=== PATIENT | male | born 1960 | race Caucasian/White ===

== ENCOUNTER 2017-02-13 07:28 | Inpatient (IN) | payer OTHER ==
[~2017-02-13 07:28] MED LIST: Gentamicin 40 MG/ML 2 ML Vial ONE; Midazolam 1 MG/ML 2 ML SDV ONE; Povidone-Iodine 10% Soln 118.25 ML Bottle ONE; Propofol 200 MG/20 ML SDV ONE; fentaNYL 100 MCG/2 ML SDV ONE
[2017-02-13] MEDS ORDERED: Lactated Ringers 1,000 ML IV SCH ×2 (08:00→12:00)
[2017-02-13] MEDS ORDERED: Gabapentin 300 MG Cap PO ONE (08:00)
[2017-02-13] MEDS ORDERED: Scopolamine 1.5 MG Transdermal Patch TOP SCH (08:00)
[2017-02-13] MEDS ORDERED: ceFAZolin 2 GM in Sodium Chloride 0.9% 50 ML IV ONE (09:00)
[2017-02-13] MEDS ORDERED: Ropivacaine 49.25 ML, Ketorolac 30 MG, EPINEPHrine 0.5 MG, cloNIDine 80 MCG, Sodium Chl... INJECT ONE ×5 (09:30)
[2017-02-13] MEDS ORDERED: Ketamine 500 MG/5 ML MDV IV SCH (09:30)
[2017-02-13] MEDS: Tranexamic Acid 1,000 MG in Sodium Chloride 0.9% 50 ML IV SCH ×2 (09:40→12:02)
[2017-02-13] MEDS ORDERED: Lactated Ringers 1,000 ML ONE (09:54)
[2017-02-13] MEDS ORDERED: Propofol 200 MG/20 ML SDV ONE ×2 (10:02→11:18)
[2017-02-13] MEDS ORDERED: Naloxone 0.4 MG/ML SDV IVPUSH PRN (11:58)
[2017-02-13] MEDS ORDERED: Bisacodyl 5 MG Tab PO PRN (11:58)
[2017-02-13] MEDS ORDERED: Magnesium Hydroxide 400 MG/5 ML Susp 30 ML Cup PO PRN (11:58)
[2017-02-13] MEDS ORDERED: Ondansetron 4 MG/2 ML SDV IVPUSH PRN (11:58)
[2017-02-13] MEDS ORDERED: diphenhydrAMINE 50 MG/ML SDV IVPUSH PRN (11:58)
[2017-02-13] MEDS ORDERED: Zolpidem 5 MG Tab PO PRN (11:58)
[2017-02-13] MEDS ORDERED: Morphine 2 MG/ML Syringe IVPUSH PRN (11:58)
[2017-02-13] MEDS ORDERED: Aluminum Hydroxide/Magnesium Hydroxide/Simethicone Susp 30 ML Cup PO PRN (11:58)
[2017-02-13] MEDS ORDERED: Acetaminophen 1,000 MG in Premix Bag 1 BAG IV ONE (13:00)
[2017-02-13] MEDS: Ketorolac 30 MG/ML SDV IVPUSH PRN ×2 (13:07→21:48)
--- NOTE | 2017-02-13 13:12 | CR ---
Status post left DKA.. Negative for post surgical purposes.
[2017-02-13] MEDS: VERIFY SCOPOLAMINE PATCH TOP SCH (14:00)
[2017-02-13] MEDS: oxyCODONE 5 MG Tab PO PRN ×2 (14:01→22:54)
[2017-02-13] MEDS ORDERED: HYDROmorphone 1 MG/ML Syringe IVPUSH ONE (14:28)
[2017-02-13] MEDS ORDERED: HYDROmorphone 0.5 MG/0.5 ML Syringe IVPUSH PRN (14:29)
--- NOTE | 2017-02-13 14:38 | PCM.PN ---
- General Info Date of Service: 02/13/17 Functional Status: Denies: Pain Controlled - Review of Systems Musculoskeletal: Reports: Joint Pain - Patient Data Vitals - Most Recent: Last Vital Signs Temp 36 C 02/13/17 14:25 Pulse 63 02/13/17 14:25 Resp 16 02/13/17 14:25 BP 158/82 H 02/13/17 14:25 Pulse Ox 95 02/13/17 14:25 Weight - Most Recent: 138.663 kg I&O - Last 24 Hours: Intake & Output 02/12/17 02/13/17 02/13/17 22:59 06:59 14:59 Intake Total 1500 Output Total 1125 Balance 375 Lab Results Last 24 Hours: Laboratory Results - last 24 hr 02/13/17 Range/Units 07:45 Blood Type A POSITIVE Gel Antibody Screen Negative Med Orders - Current: Current Medications Al Hydroxide/Mg Hydroxide (Mag-Al Plus) 30 ml PO Q4H PRN PRN Reason: Constipation Aspirin (Ecotrin) 325 mg PO BID [facility] Bisacodyl (Dulcolax) 10 mg PO DAILY PRN PRN Reason: Constipation Diazepam (Valium) 5 mg IVPUSH Q6H PRN PRN Reason: Spasms Last Admin: 02/13/17 14:01 Dose: 5 mg Diphenhydramine HCl (Benadryl) 25 mg IVPUSH Q4H PRN PRN Reason: Itching Docusate Sodium (Colace) 100 mg PO BID PRN PRN Reason: Constipation Hydromorphone HCl (Dilaudid) 1 mg IVPUSH ONETIME ONE Stop: 02/13/17 14:29 Hydromorphone HCl (Dilaudid) 0.5 - 1 mg IVPUSH Q2H PRN PRN Reason: Pain (severe 7-10) Lactated Ringer's (Ringers, Lactated) 1,000 mls @ 100 mls/hr IV ASDIRECTED [facility] Ketorolac Tromethamine (Toradol) 30 mg IVPUSH Q8H PRN PRN Reason: Pain Stop: 02/18/17 11:58 Last Admin: 02/13/17 13:07 Dose: 30 mg Magnesium Hydroxide (Milk Of Magnesia) 30 ml PO BID PRN PRN Reason: Constipation Naloxone HCl (Narcan) 0.1 mg IVPUSH ASDIRECTED PRN PRN Reason: Oversedation Stop: 02/13/17 22:00 Verify Scopolamine (Patch) 0 each TOP DAILY [facility] [place] Ondansetron HCl (Zofran) 8 mg IVPUSH Q4H PRN PRN Reason: Nausea/Vomiting Oxycodone HCl (Oxycodone) 10 mg PO Q4H PRN PRN Reason: Pain Last Admin: 02/13/17 14:01 Dose: 10 mg Scopolamine (Transderm-Scop) 1.5 mg TOP Q72H [facility] [place] Stop: 02/16/17 06:00 Last Admin: 02/13/17 08:20 Dose: 1.5 mg Senna (Senna) 8.6 mg PO BID PRN PRN Reason: Constipation Sodium Chloride (Saline Flush) 10 ml FLUSH DAILY [facility] [place] Tramadol HCl (Ultram) 100 mg PO Q6H PRN PRN Reason: Pain Zolpidem Tartrate (Ambien) 5 mg PO BEDTIME PRN PRN Reason: Sleep Discontinued Medications Aspirin (Ecotrin) 325 mg PO BID [facility] [place] Ropivacaine 49.25 ml/Ketorolac Tromethamine 30 mg/Epinephrine HCl 0.5 mg/ Clonidine HCl 80 mcg/ Sodium Chloride 48.45 ml 0 ml INJECT ONETIME ONE Stop: 02/13/17 09:31 Last Admin: 02/13/17 10:03 Dose: 100 ml Diazepam (Valium) 5 mg IVPUSH Q6H PRN PRN Reason: Spasms Fentanyl (Sublimaze) Confirm Administered Dose 100 mcg .ROUTE .STK-MED ONE Stop: 02/13/17 07:15 Gabapentin (Neurontin) 300 mg PO ONETIME ONE Stop: 02/13/17 08:01 Last Admin: 02/13/17 08:19 Dose: 300 mg Gentamicin Sulfate (Gentamicin) Confirm Administered Dose 240 mg .ROUTE .STK- MED ONE Stop: 02/13/17 07:09 Last Admin: 02/13/17 10:12 Dose: 240 mg Cefazolin Sodium 2 gm/ Sodium (Chloride) 50 mls @ 100 mls/hr IV ONETIME ONE Stop: 02/13/17 09:29 Last Admin: 02/13/17 09:09 Dose: 100 mls/hr Lactated Ringer's (Ringers, Lactated) 1,000 mls @ 0 mls/hr IV ASDIRECTED [facility] PRN Reason: KVO Tranexamic Acid 1,000 mg/ (Sodium Chloride) 60 mls @ 240 mls/hr IV Q3H [facility] [place] Stop: 02/13/17 12:44 Last Admin: 02/13/17 12:02 Dose: 240 mls/hr Lactated Ringer's (Ringers, Lactated) Confirm Administered Dose 1,000 mls @ as directed .ROUTE .STK-MED ONE Stop: 02/13/17 09:55 Acetaminophen 1,000 mg/ Premix 100 mls @ 400 mls/hr IV NOW ONE Stop: 02/13/17 13:14 Last Admin: 02/13/17 13:15 Dose: 400 mls/hr Ketamine HCl (Ketalar) 38 mg IV ASDIRECTED [facility] [place] Midazolam HCl (Versed 1 Mg/Ml) Confirm Administered Dose 2 mg .ROUTE .STK-MED ONE Stop: 02/13/17 07:15 Morphine Sulfate (Morphine) 2 mg IVPUSH Q2H PRN PRN Reason: Pain Last Admin: 02/13/17 13:06 Dose: 2 mg Povidone Iodine (Betadine 10% Soln) Confirm Administered Dose 1 ml .ROUTE .STK- MED ONE Stop: 02/13/17 07:09 Last Admin: 02/13/17 10:13 Dose: 30 ml Propofol (Diprivan 20 Ml) Confirm Administered Dose 200 mg .ROUTE .STK-MED ONE Stop: 02/13/17 07:15 Propofol (Diprivan 20 Ml) Confirm Administered Dose 200 mg .ROUTE .STK-MED ONE Stop: 02/13/17 10:03 Propofol (Diprivan 20 Ml) Confirm Administered Dose 200 mg .ROUTE .STK-MED ONE Stop: 02/13/17 11:19 - Exam Quality Assessment: No: Supplemental Oxygen General: Alert, Oriented, Cooperative, Mild Distress HEENT: Pupils Equal Neck: Supple Lungs: Normal Respiratory Effort GI/Abdominal Exam: No Distention Extremities: No Pedal Edema, Other (left knee wrapped with JOSSE. Able to wiggle toes on both feet). No: Increased Warmth Skin: Warm, Dry Neurological: Sensation Intact Psy/Mental Status: Alert, Normal Affect - Problem List & Annotations (1) Post-traumatic osteoarthritis of left knee SNOMED Code(s): 614708477, 394101392 Code(s): M17.32 - UNILATERAL POST-TRAUMATIC OSTEOARTHRITIS, LEFT KNEE Status: Acute Current Visit: No (2) Diabetes mellitus type II, controlled SNOMED Code(s): 48997055 Code(s): E11.9 - TYPE 2 DIABETES MELLITUS WITHOUT COMPLICATIONS Status: Acute Current Visit: Yes Qualifiers: Diabetes mellitus complication status: without complication Diabetes mellitus correction insulin use: without terminal computer operator use Qualified Code(s): E11.9 - Type 2 diabetes mellitus without complications - Problem List Review Problem List Initiated/Reviewed/Updated: Yes - My Orders Last 24 Hours: My Active Orders 02/13/17 14:28 HYDROmorphone [Dilaudid] 1 mg IVPUSH ONETIME ONE 02/13/17 14:29 HYDROmorphone [Dilaudid] 0.5 - 1 mg IVPUSH Q2H PRN - Plan Plan:: Assessment and plan - Left knee osteoarthritis status post total knee arthroplasty - stable postoperatively though pain is not well controlled at this time. No paresthesias or red flags. -Postop cares per orthopedics team Type 2 diabetes mellitus, controlled - off medications at this time. -twice a day Accu-Cheks -Consider sliding scale if needed Girish Giron M.D.
--- NOTE | 2017-02-13 15:39 | OR ---
DATE OF PROCEDURE: 02/13/2017 PREOPERATIVE DIAGNOSIS: Left knee primary osteoarthritis. POSTOPERATIVE DIAGNOSIS: Left knee primary osteoarthritis. PROCEDURE: 1. Left knee total knee arthroplasty. 2. Removal of ACL hardware. MACHINE I CUTTER: SUMMER Cruz. ANESTHESIA: Spinal plus conscious sedation. FLUIDS: Lactated Ringer solution. ESTIMATED BLOOD LOSS: 200 mL. COMPLICATIONS: None. SPECIMEN: None. DISCHARGE DISPOSITION: Stable to PACU. HISTORY AND INDICATION FOR THE PROCEDURE: The patient was seen preoperatively in the clinic. He had previous ACL surgery in the 80s. He had hardware in from that, needed to be removed. Risks and benefits of the procedure were explained to the patient. Informed consent was obtained. Preoperative imaging confirmed the above-mentioned diagnosis. DETAILS OF PROCEDURE: The patient was seen preoperatively by myself and the Anesthesia staff in the preoperative holding area where the operative site was marked. He was brought to the operative suite by Anesthesia staff where a spinal anesthesia was administered plus conscious sedation. A well-padded tourniquet was placed in the left lower extremity. The left lower extremity was then prepped and draped in a sterile manner. A time-out was called identifying the correct patient, the correct procedure, the correct site, and antibiotics had begun with an appropriate period of time. The left lower extremity was exsanguinated and the tourniquet was raised to 300 mmHg for 74 minutes and taken down after cementing. A midline incision was made 3 fingerbreadths proximal to the patella down to the level of tibial tubercle, carried down to the deep fascia. Bleeding was controlled during the case with Bovie electrocautery as well as an Aquamantys unit. A medial parapatellar arthrotomy was made. Full synovectomy was then performed. The patella was everted. Knee flexed and then two cuts were made on the patella, freehand using a saw. This measured a 40 mm patella. Three holes were drilled and a patellar trial was placed. As much of the ACL and PCL that could be removed, were removed as well as the medial and lateral meniscus. The knee was flexed. The distal femur was reamed and then an intramedullary guide was inserted at 5-degree valgus, 9 mm distal cut. The distal cut was made. We then used a posterior condylar guide which measured a 72.5, and drilled holes for the chamfer block. The chamfer block was then placed. During the case, the medial collateral ligament was protected with either a sharp Hohmann or AC retractor. The chamfer block was placed and then anterior and posterior chamfer cuts were then made and then completed with the osteotome and saw. This took a great deal of time because the patient was so large. We then focused on tibia. I exposed the proximal tibia using Bovie electrocautery on the medial aspect. I then used an extramedullary guide and then adjusted for a 5 degree posterior slope and then pinned this in place. We then made our saw cut, protecting the posterior capsule with a blunt Hohmann and anteriorizing the tibia. I then used osteotomes and saws to complete my proximal tibial cut. Prior to doing that, I removed an ACL implant which was metal from the proximal tibia. After that was completed, we measured the tibia which was 83 mm and then pinned the base plate and then reamed the proximal tibia and then tamped the fins. We then placed our femoral component and then drilled the lugs for the femoral component. I then inserted a 10 mm trial which provided a good stability throughout flexion and extension as well as medial and lateral stability. This was quite tight in extension, so I did remove all of our components, copiously irrigated with saline, and then used a laminar gold reclaimer to remove any posterior osteophytes as well as to make sure that the posterior capsule was free as well as the remainder of the medial and lateral meniscus were taken out. There was a great deal of soft tissue during this procedure, which took a lot of time to take out. We then applied our cement on all components, and then allowed the cement to harden in extension with a [address] After this had been completed, the cement dried. We then removed our trial, used the Aquamantys unit to control any extra bleeders. We then removed some cement with a narrow osteotome, copiously irrigated again with saline, and then placed our final 10 mm polyethylene tibial insert. This provided excellent stability throughout range of motion. We then irrigated again and then closed the capsule with two #5 Ethibond sutures, 0 pop interrupted sutures, followed by #1 Stratafix, 3-0 Stratafix, and skin dell. The patient was then transferred to his hospital bed and taken to the PACU in stable condition. Raymond Medeiros DO /[id number]
[2017-02-13] MEDS ORDERED: hydrOXYzine HCl 25 MG Tab PO PRN (19:17)
[2017-02-13] MEDS: traMADol 50 MG Tab PO PRN (20:51)
[2017-02-13] MEDS: Aspirin 325 MG Tab.EC PO SCH (20:52)
[2017-02-13] MEDS: Docusate Sodium 100 MG Cap PO PRN (20:52)
[2017-02-13] MEDS ORDERED: Aspirin 325 MG Tab.EC PO SCH (21:00)
[2017-02-14] MEDS: oxyCODONE 5 MG Tab PO PRN ×2 (05:01→09:04)
[2017-02-14] MEDS: traMADol 50 MG Tab PO PRN ×2 (08:34→16:22)
[2017-02-14] MEDS: VERIFY SCOPOLAMINE PATCH TOP SCH (08:58)
[2017-02-14] MEDS: Aspirin 325 MG Tab.EC PO SCH ×2 (09:06→20:03)
[2017-02-14] MEDS: Sodium Chloride 0.9% 10 ML Syringe FLUSH SCH (09:07)
--- NOTE | 2017-02-14 11:20 | PCM.PN ---
- General Info Date of Service: 02/14/17 Functional Status: Reports: Pain Controlled, Ambulating - Review of Systems Musculoskeletal: Reports: Leg Pain Systems Review Comment:: No acute events overnight. Patient has been struggling with pain control but has had some periods with better control. Vital signs have been stable. No fevers. Doing well other than his knee pain. - Patient Data Vitals - Most Recent: Last Vital Signs Temp 37.2 C 02/14/17 11:12 Pulse 74 02/14/17 11:12 Resp 18 02/14/17 11:12 BP 127/55 L 02/14/17 11:12 Pulse Ox 88 L 02/14/17 11:12 Weight - Most Recent: 138.663 kg I&O - Last 24 Hours: Intake & Output 02/13/17 02/14/17 02/14/17 22:59 06:59 14:59 Intake Total 1840 Output Total 245 300 Balance 1595 -300 Lab Results Last 24 Hours: Laboratory Results - last 24 hr 02/14/17 02/14/17 Range/Units 04:45 04:45 WBC 13.8 H (4.5-11.0) K/uL RBC 4.20 L (4.30-5.90) M/uL Hgb 12.6 (12.0-15.0) g/dL Hct 38.0 L (40.0-54.0) % MCV 91 (80-98) fL MCH 30 (27-31) pg MCHC 33 (32-36) % Plt Count 182 (150-400) K/uL Neut % (Auto) 63 (36-66) % Lymph % (Auto) 21 L (24-44) % Anderson % (Auto) 15 H (2-6) % Eos % (Auto) 2 (2-4) % Baso % (Auto) 0 (0-1) % Sodium 140 (140-148) mmol/L Potassium 4.3 (3.6-5.2) mmol/L Chloride 105 (100-108) mmol/L Carbon Dioxide 32 (21-32) mmol/L Anion Gap 3.5 L (5.0-14.0) mmol/L BUN 10 (7-18) mg/dL Creatinine 0.9 (0.8-1.3) mg/dL Est Cr Clr Drug Dosing TNP Estimated GFR (MDRD) > 60 (>60) Glucose 121 H (74-106) mg/dL Calcium 8.2 L (8.5-10.1) mg/dL Total Bilirubin 0.6 (0.2-1.0) mg/dL AST 21 (15-37) U/L ALT 37 (12-78) U/L Alkaline Phosphatase 47 (46-116) U/L Total Protein 6.4 (6.4-8.2) g/dL Albumin 3.1 L (3.4-5.0) g/dL Globulin 3.3 (2.3-3.5) g/dL Albumin/Globulin Ratio 0.9 L (1.2-2.2) Med Orders - Current: Current Medications Al Hydroxide/Mg Hydroxide (Mag-Al Plus) 30 ml PO Q4H PRN PRN Reason: Constipation Aspirin (Ecotrin) 325 mg PO BID [facility] Last Admin: 02/14/17 09:06 Dose: 325 mg Bisacodyl (Dulcolax) 10 mg PO DAILY PRN PRN Reason: Constipation Diazepam (Valium.) 5 mg PO Q6H PRN PRN Reason: Spasms Diphenhydramine HCl (Benadryl) 25 mg IVPUSH Q4H PRN PRN Reason: Itching Docusate Sodium (Colace) 100 mg PO BID PRN PRN Reason: Constipation Last Admin: 02/13/17 20:52 Dose: 100 mg Hydromorphone HCl (Dilaudid) 0.5 - 1 mg IVPUSH Q2H PRN PRN Reason: Pain (severe 7-10) Hydroxyzine HCl (Atarax) 50 mg PO Q6H PRN PRN Reason: Sleep Last Admin: 02/13/17 20:52 Dose: 50 mg Lactated Ringer's (Ringers, Lactated) 1,000 mls @ 100 mls/hr IV ASDIRECTED [facility] Last Admin: 02/13/17 14:44 Dose: 100 mls/hr Ketorolac Tromethamine (Toradol) 30 mg IVPUSH Q8H PRN PRN Reason: Pain Stop: 02/18/17 11:58 Last Admin: 02/13/17 21:48 Dose: 30 mg Magnesium Hydroxide (Milk Of Magnesia) 30 ml PO BID PRN PRN Reason: Constipation Verify Scopolamine (Patch) 0 each TOP DAILY [facility] Last Admin: 02/14/17 08:58 Dose: Not Given Ondansetron HCl (Zofran) 8 mg IVPUSH Q4H PRN PRN Reason: Nausea/Vomiting Oxycodone/Acetaminophen (Percocet 325-5 Mg) 2 tab PO Q4H PRN PRN Reason: Pain Scopolamine (Transderm-Scop) 1.5 mg TOP Q72H [facility] Stop: 02/16/17 06:00 Last Admin: 02/13/17 08:20 Dose: 1.5 mg Senna (Senna) 8.6 mg PO BID PRN PRN Reason: Constipation Sodium Chloride (Saline Flush) 10 ml FLUSH DAILY [facility] Last Admin: 02/14/17 09:07 Dose: 10 ml Tramadol HCl (Ultram) 100 mg PO Q6H PRN PRN Reason: Pain Last Admin: 02/14/17 08:34 Dose: 100 mg Zolpidem Tartrate (Ambien) 5 mg PO BEDTIME PRN PRN Reason: Sleep Discontinued Medications Aspirin (Ecotrin) 325 mg PO BID [facility] Ropivacaine 49.25 ml/Ketorolac Tromethamine 30 mg/Epinephrine HCl 0.5 mg/ Clonidine HCl 80 mcg/ Sodium Chloride 48.45 ml 0 ml INJECT ONETIME ONE Stop: 02/13/17 09:31 Last Admin: 02/13/17 10:03 Dose: 100 ml Diazepam (Valium) 5 mg IVPUSH Q6H PRN PRN Reason: Spasms Diazepam (Valium) 5 mg IVPUSH Q6H PRN PRN Reason: Spasms Last Admin: 02/14/17 05:01 Dose: 5 mg Fentanyl (Sublimaze) Confirm Administered Dose 100 mcg .ROUTE .STK-MED ONE Stop: 02/13/17 07:15 Gabapentin (Neurontin) 300 mg PO ONETIME ONE Stop: 02/13/17 08:01 Last Admin: 02/13/17 08:19 Dose: 300 mg Gentamicin Sulfate (Gentamicin) Confirm Administered Dose 240 mg .ROUTE .STK- MED ONE Stop: 02/13/17 07:09 Last Admin: 02/13/17 10:12 Dose: 240 mg Hydromorphone HCl (Dilaudid) 1 mg IVPUSH ONETIME ONE Stop: 02/13/17 14:29 Last Admin: 02/13/17 14:42 Dose: 1 mg Cefazolin Sodium 2 gm/ Sodium (Chloride) 50 mls @ 100 mls/hr IV ONETIME ONE Stop: 02/13/17 09:29 Last Admin: 02/13/17 09:09 Dose: 100 mls/hr Lactated Ringer's (Ringers, Lactated) 1,000 mls @ 0 mls/hr IV ASDIRECTED [facility] PRN Reason: KVO Tranexamic Acid 1,000 mg/ (Sodium Chloride) 60 mls @ 240 mls/hr IV Q3H [facility] Stop: 02/13/17 12:44 Last Admin: 02/13/17 12:02 Dose: 240 mls/hr Lactated Ringer's (Ringers, Lactated) Confirm Administered Dose 1,000 mls @ as directed .ROUTE .STK-MED ONE Stop: 02/13/17 09:55 Acetaminophen 1,000 mg/ Premix 100 mls @ 400 mls/hr IV NOW ONE Stop: 02/13/17 13:14 Last Admin: 02/13/17 13:15 Dose: 400 mls/hr Ketamine HCl (Ketalar) 38 mg IV ASDIRECTED [facility] Midazolam HCl (Versed 1 Mg/Ml) Confirm Administered Dose 2 mg .ROUTE .STK-MED ONE Stop: 02/13/17 07:15 Morphine Sulfate (Morphine) 2 mg IVPUSH Q2H PRN PRN Reason: Pain Last Admin: 02/13/17 13:06 Dose: 2 mg Naloxone HCl (Narcan) 0.1 mg IVPUSH ASDIRECTED PRN PRN Reason: Oversedation Stop: 02/13/17 22:00 Oxycodone HCl (Oxycodone) 10 mg PO Q4H PRN PRN Reason: Pain Last Admin: 02/14/17 09:04 Dose: 10 mg Povidone Iodine (Betadine 10% Soln) Confirm Administered Dose 1 ml .ROUTE .STK- MED ONE Stop: 02/13/17 07:09 Last Admin: 02/13/17 10:13 Dose: 30 ml Propofol (Diprivan 20 Ml) Confirm Administered Dose 200 mg .ROUTE .STK-MED ONE Stop: 02/13/17 07:15 Propofol (Diprivan 20 Ml) Confirm Administered Dose 200 mg .ROUTE .STK-MED ONE Stop: 02/13/17 10:03 Propofol (Diprivan 20 Ml) Confirm Administered Dose 200 mg .ROUTE .STK-MED ONE Stop: 02/13/17 11:19 - Exam Quality Assessment: Supplemental Oxygen General: Alert, Cooperative, Mild Distress Lungs: Normal Respiratory Effort GI/Abdominal Exam: Soft, No Distention Extremities: No Pedal Edema, Other (left knee wrapped in JOSSE) Skin: Warm, Dry Psy/Mental Status: Alert, Normal Affect - Problem List & Annotations (1) Post-traumatic osteoarthritis of left knee SNOMED Code(s): 076785823, [id number] Code(s): M17.32 - UNILATERAL POST-TRAUMATIC OSTEOARTHRITIS, LEFT KNEE Status: Acute Current Visit: No (2) Diabetes mellitus type II, controlled SNOMED Code(s): 17631853 Code(s): E11.9 - TYPE 2 DIABETES MELLITUS WITHOUT COMPLICATIONS Status: Acute Current Visit: Yes Qualifiers: Diabetes mellitus complication status: without complication Diabetes mellitus terminal block assembler insulin use: without terminal block assembler use Qualified Code(s): E11.9 - Type 2 diabetes mellitus without complications - Problem List Review Problem List Initiated/Reviewed/Updated: Yes - My Orders Last 24 Hours: My Active Orders 02/13/17 14:29 HYDROmorphone [Dilaudid] 0.5 - 1 mg IVPUSH Q2H PRN 02/14/17 17:00 GLUCOSE POC LAB TO COLLECT [POC] BIDAC 02/15/17 08:00 GLUCOSE POC LAB TO COLLECT [POC] BIDAC 02/15/17 17:00 GLUCOSE POC LAB TO COLLECT [POC] BIDAC - Plan Plan:: Assessment and plan - Left knee osteoarthritis status post total knee arthroplasty - stable postoperatively though he has struggled with pain control. He has been working with physical therapy. -Postop cares per orthopedics team Type 2 diabetes mellitus, controlled - off medications at this time. Sugars acceptable. -twice a day Accu-Cheks -Consider sliding scale if needed Girish Giron M.D.
[2017-02-14] MEDS: Sennosides 8.6 MG Tab PO PRN (11:47)
[2017-02-14] MEDS: Diazepam 5 MG Tab PO PRN (12:53)
[2017-02-14] MEDS: Acetaminophen/oxyCODONE 325-5 MG Tab PO PRN ×3 (12:54→23:12)
--- NOTE | 2017-02-14 15:14 | PCM.PN ---
- General Info Date of Service: 02/14/17 Functional Status: Reports: Pain Controlled, Tolerating Diet, Ambulating, Urinating - Review of Systems Musculoskeletal: Reports: Joint Pain - Patient Data Vitals - Most Recent: Last Vital Signs Temp 37.2 C 02/14/17 11:12 Pulse 74 02/14/17 11:12 Resp 18 02/14/17 11:12 BP 127/55 L 02/14/17 11:12 Pulse Ox 88 L 02/14/17 11:12 Weight - Most Recent: 305 lb 11.193 oz I&O - Last 24 Hours: Intake & Output 02/14/17 02/14/17 02/14/17 06:59 14:59 22:59 Intake Total 1280 Output Total 300 Balance -300 1280 Lab Results Last 24 Hours: Laboratory Results - last 24 hr 02/14/17 02/14/17 Range/Units 04:45 04:45 WBC 13.8 H (4.5-11.0) K/uL RBC 4.20 L (4.30-5.90) M/uL Hgb 12.6 (12.0-15.0) g/dL Hct 38.0 L (40.0-54.0) % MCV 91 (80-98) fL MCH 30 (27-31) pg MCHC 33 (32-36) % Plt Count 182 (150-400) K/uL Neut % (Auto) 63 (36-66) % Lymph % (Auto) 21 L (24-44) % [place] % (Auto) 15 H (2-6) % Eos % (Auto) 2 (2-4) % Baso % (Auto) 0 (0-1) % Sodium 140 (140-148) mmol/L Potassium 4.3 (3.6-5.2) mmol/L Chloride 105 (100-108) mmol/L Carbon Dioxide 32 (21-32) mmol/L Anion Gap 3.5 L (5.0-14.0) mmol/L BUN 10 (7-18) mg/dL Creatinine 0.9 (0.8-1.3) mg/dL Est Cr Clr Drug Dosing TNP Estimated GFR (MDRD) > 60 (>60) Glucose 121 H (74-106) mg/dL Calcium 8.2 L (8.5-10.1) mg/dL Total Bilirubin 0.6 (0.2-1.0) mg/dL AST 21 (15-37) U/L ALT 37 (12-78) U/L Alkaline Phosphatase 47 (46-116) U/L Total Protein 6.4 (6.4-8.2) g/dL Albumin 3.1 L (3.4-5.0) g/dL Globulin 3.3 (2.3-3.5) g/dL Albumin/Globulin Ratio 0.9 L (1.2-2.2) Med Orders - Current: Current Medications Al Hydroxide/Mg Hydroxide (Mag-Al Plus) 30 ml PO Q4H PRN PRN Reason: Constipation Aspirin (Ecotrin) 325 mg PO BID [facility] Last Admin: 02/14/17 09:06 Dose: 325 mg Bisacodyl (Dulcolax) 10 mg PO DAILY PRN PRN Reason: Constipation Diazepam (Valium.) 5 mg PO Q6H PRN PRN Reason: Spasms Last Admin: 02/14/17 12:53 Dose: 5 mg Diphenhydramine HCl (Benadryl) 25 mg IVPUSH Q4H PRN PRN Reason: Itching Docusate Sodium (Colace) 100 mg PO BID PRN PRN Reason: Constipation Last Admin: 02/13/17 20:52 Dose: 100 mg Hydromorphone HCl (Dilaudid) 0.5 - 1 mg IVPUSH Q2H PRN PRN Reason: Pain (severe 7-10) Hydroxyzine HCl (Atarax) 50 mg PO Q6H PRN PRN Reason: Sleep Last Admin: 02/13/17 20:52 Dose: 50 mg Lactated Ringer's (Ringers, Lactated) 1,000 mls @ 100 mls/hr IV ASDIRECTED [facility] Last Admin: 02/13/17 14:44 Dose: 100 mls/hr Ketorolac Tromethamine (Toradol) 30 mg IVPUSH Q8H PRN PRN Reason: Pain Stop: 02/18/17 11:58 Last Admin: 02/13/17 21:48 Dose: 30 mg Magnesium Hydroxide (Milk Of Magnesia) 30 ml PO BID PRN PRN Reason: Constipation Verify Scopolamine (Patch) 0 each TOP DAILY [facility] Last Admin: 02/14/17 08:58 Dose: Not Given Ondansetron HCl (Zofran) 8 mg IVPUSH Q4H PRN PRN Reason: Nausea/Vomiting Oxycodone/Acetaminophen (Percocet 325-5 Mg) 2 tab PO Q4H PRN PRN Reason: Pain Last Admin: 02/14/17 12:54 Dose: 2 tab Scopolamine (Transderm-Scop) 1.5 mg TOP Q72H [facility] Stop: 02/16/17 06:00 Last Admin: 02/13/17 08:20 Dose: 1.5 mg Senna (Senna) 8.6 mg PO BID PRN PRN Reason: Constipation Last Admin: 02/14/17 11:47 Dose: 8.6 mg Sodium Chloride (Saline Flush) 10 ml FLUSH DAILY [facility] Last Admin: 02/14/17 09:07 Dose: 10 ml Tramadol HCl (Ultram) 100 mg PO Q6H PRN PRN Reason: Pain Last Admin: 02/14/17 08:34 Dose: 100 mg Zolpidem Tartrate (Ambien) 5 mg PO BEDTIME PRN PRN Reason: Sleep Discontinued Medications Aspirin (Ecotrin) 325 mg PO BID [facility] Ropivacaine 49.25 ml/Ketorolac Tromethamine 30 mg/Epinephrine HCl 0.5 mg/ Clonidine HCl 80 mcg/ Sodium Chloride 48.45 ml 0 ml INJECT ONETIME ONE Stop: 02/13/17 09:31 Last Admin: 02/13/17 10:03 Dose: 100 ml Diazepam (Valium) 5 mg IVPUSH Q6H PRN PRN Reason: Spasms Diazepam (Valium) 5 mg IVPUSH Q6H PRN PRN Reason: Spasms Last Admin: 02/14/17 05:01 Dose: 5 mg Fentanyl (Sublimaze) Confirm Administered Dose 100 mcg .ROUTE .STK-MED ONE Stop: 02/13/17 07:15 Gabapentin (Neurontin) 300 mg PO ONETIME ONE Stop: 02/13/17 08:01 Last Admin: 02/13/17 08:19 Dose: 300 mg Gentamicin Sulfate (Gentamicin) Confirm Administered Dose 240 mg .ROUTE .STK- MED ONE Stop: 02/13/17 07:09 Last Admin: 02/13/17 10:12 Dose: 240 mg Hydromorphone HCl (Dilaudid) 1 mg IVPUSH ONETIME ONE Stop: 02/13/17 14:29 Last Admin: 02/13/17 14:42 Dose: 1 mg Cefazolin Sodium 2 gm/ Sodium (Chloride) 50 mls @ 100 mls/hr IV ONETIME ONE Stop: 02/13/17 09:29 Last Admin: 02/13/17 09:09 Dose: 100 mls/hr Lactated Ringer's (Ringers, Lactated) 1,000 mls @ 0 mls/hr IV ASDIRECTED [facility] PRN Reason: KVO Tranexamic Acid 1,000 mg/ (Sodium Chloride) 60 mls @ 240 mls/hr IV Q3H [facility] Stop: 02/13/17 12:44 Last Admin: 02/13/17 12:02 Dose: 240 mls/hr Lactated Ringer's (Ringers, Lactated) Confirm Administered Dose 1,000 mls @ as directed .ROUTE .STK-MED ONE Stop: 02/13/17 09:55 Acetaminophen 1,000 mg/ Premix 100 mls @ 400 mls/hr IV NOW ONE Stop: 02/13/17 13:14 Last Admin: 02/13/17 13:15 Dose: 400 mls/hr Ketamine HCl (Ketalar) 38 mg IV ASDIRECTED [facility] Midazolam HCl (Versed 1 Mg/Ml) Confirm Administered Dose 2 mg .ROUTE .STK-MED ONE Stop: 02/13/17 07:15 Morphine Sulfate (Morphine) 2 mg IVPUSH Q2H PRN PRN Reason: Pain Last Admin: 02/13/17 13:06 Dose: 2 mg Naloxone HCl (Narcan) 0.1 mg IVPUSH ASDIRECTED PRN PRN Reason: Oversedation Stop: 02/13/17 22:00 Oxycodone HCl (Oxycodone) 10 mg PO Q4H PRN PRN Reason: Pain Last Admin: 02/14/17 09:04 Dose: 10 mg Povidone Iodine (Betadine 10% Soln) Confirm Administered Dose 1 ml .ROUTE .STK- MED ONE Stop: 02/13/17 07:09 Last Admin: 02/13/17 10:13 Dose: 30 ml Propofol (Diprivan 20 Ml) Confirm Administered Dose 200 mg .ROUTE .STK-MED ONE Stop: 02/13/17 07:15 Propofol (Diprivan 20 Ml) Confirm Administered Dose 200 mg .ROUTE .STK-MED ONE Stop: 02/13/17 10:03 Propofol (Diprivan 20 Ml) Confirm Administered Dose 200 mg .ROUTE .STK-MED ONE Stop: 02/13/17 11:19 - Exam General: Alert, Oriented Extremities: Normal Inspection, No Pedal Edema, Normal Capillary Refill, Joint Swelling Peripheral Pulses: 2+: Dorsalis Pedis (L), Dorsalis Pedis (R) Skin: Warm, Dry, Intact Wound/Incisions: Healing Well, Dressing Dry and Intact Neurological: No New Focal Deficit Psy/Mental Status: Alert - Problem List Review Problem List Initiated/Reviewed/Updated: Yes - My Orders Last 24 Hours: My Active Orders 02/13/17 21:00 Aspirin [Ecotrin] 325 mg PO BID 02/14/17 09:00 Sodium Chloride 0.9% [Saline Flush] 10 ml FLUSH DAILY 02/14/17 10:30 Diazepam [Valium] 5 mg PO Q6H PRN 02/14/17 10:51 Acetaminophen/oxyCODONE [Percocet 325-5 MG] 2 tab PO Q4H PRN 02/15/17 05:15 CBC WITH AUTO DIFF [HEME] DAILY COMPREHENSIVE METABOLIC PN,CMP [CHEM] DAILY 02/16/17 05:15 CBC WITH AUTO DIFF [HEME] DAILY COMPREHENSIVE METABOLIC PN,CMP [CHEM] DAILY 02/17/17 05:15 CBC WITH AUTO DIFF [HEME] DAILY COMPREHENSIVE METABOLIC PN,CMP [CHEM] DAILY - Plan Plan:: Assessment and plan - Left knee osteoarthritis status post total knee arthroplasty - patient is doing well today. He is having some pain but has continued to receive oral pain medication with relief. He continues to request PT OT for strengthening.
[2017-02-14] MEDS: Docusate Sodium 100 MG Cap PO PRN (20:03)
[2017-02-15] MEDS: Diazepam 5 MG Tab PO PRN (04:07)
[2017-02-15] MEDS: Acetaminophen/oxyCODONE 325-5 MG Tab PO PRN ×2 (04:08→14:03)
[2017-02-15] MEDS: Aspirin 325 MG Tab.EC PO SCH (08:22)
[2017-02-15] MEDS: VERIFY SCOPOLAMINE PATCH TOP SCH (08:22)
[2017-02-15] MEDS: Sennosides 8.6 MG Tab PO PRN (08:28)
[2017-02-15] MEDS: traMADol 50 MG Tab PO PRN (08:45)
--- NOTE | 2017-02-15 10:27 | PCM.PN ---
- General Info Date of Service: 02/15/17 Functional Status: Reports: Pain Controlled, Tolerating Diet, Ambulating - Review of Systems Musculoskeletal: Reports: Joint Pain (left knee) Systems Review Comment:: No acute events overnight. Pain control slowly improving. Still has quite a bit of pain when he is ambulating. He did become mildly hypoxic with ambulation today. Has not had a bowel movement yet. Blood sugars have all been acceptable. - Patient Data Vitals - Most Recent: Last Vital Signs Temp 36.9 C 02/15/17 07:31 Pulse 68 02/15/17 07:31 Resp 20 02/15/17 07:31 BP 137/64 02/15/17 07:31 Pulse Ox 89 L 02/15/17 07:31 Weight - Most Recent: 138.663 kg I&O - Last 24 Hours: Intake & Output 02/14/17 02/15/17 02/15/17 22:59 06:59 14:59 Intake Total 480 2020 Output Total 500 Balance 480 1520 Lab Results Last 24 Hours: Laboratory Results - last 24 hr 02/15/17 02/15/17 Range/Units 05:40 05:40 WBC 14.2 H (4.5-11.0) K/uL RBC 3.81 L (4.30-5.90) M/uL Hgb 11.8 L (12.0-15.0) g/dL Hct 34.2 L (40.0-54.0) % MCV 90 (80-98) fL MCH 31 (27-31) pg MCHC 35 (32-36) % Plt Count 163 (150-400) K/uL Neut % (Auto) 55 (36-66) % Lymph % (Auto) 20 L (24-44) % [place] % (Auto) 22 H (2-6) % Eos % (Auto) 2 (2-4) % Baso % (Auto) 0 (0-1) % Sodium 136 L (140-148) mmol/L Potassium 4.0 (3.6-5.2) mmol/L Chloride 103 (100-108) mmol/L Carbon Dioxide 30 (21-32) mmol/L Anion Gap 7.0 (5.0-14.0) mmol/L BUN 11 (7-18) mg/dL Creatinine 0.9 (0.8-1.3) mg/dL Est Cr Clr Drug Dosing 100.73 mL/min Estimated GFR (MDRD) > 60 (>60) Glucose 122 H (74-106) mg/dL Calcium 8.1 L (8.5-10.1) mg/dL Total Bilirubin 0.5 (0.2-1.0) mg/dL AST 16 (15-37) U/L ALT 31 (12-78) U/L Alkaline Phosphatase 45 L (46-116) U/L Total Protein 6.4 (6.4-8.2) g/dL Albumin 2.9 L (3.4-5.0) g/dL Globulin 3.5 (2.3-3.5) g/dL Albumin/Globulin Ratio 0.8 L (1.2-2.2) Med Orders - Current: Current Medications Al Hydroxide/Mg Hydroxide (Mag-Al Plus) 30 ml PO Q4H PRN PRN Reason: Constipation Aspirin (Ecotrin) 325 mg PO BID [facility] Last Admin: 02/15/17 08:22 Dose: 325 mg Bisacodyl (Dulcolax) 10 mg PO DAILY PRN PRN Reason: Constipation Diazepam (Valium.) 5 mg PO Q6H PRN PRN Reason: Spasms Last Admin: 02/15/17 04:07 Dose: 5 mg Diphenhydramine HCl (Benadryl) 25 mg IVPUSH Q4H PRN PRN Reason: Itching Docusate Sodium (Colace) 100 mg PO BID PRN PRN Reason: Constipation Last Admin: 02/14/17 20:03 Dose: 100 mg Hydromorphone HCl (Dilaudid) 0.5 - 1 mg IVPUSH Q2H PRN PRN Reason: Pain (severe 7-10) Hydroxyzine HCl (Atarax) 50 mg PO Q6H PRN PRN Reason: Sleep Last Admin: 02/13/17 20:52 Dose: 50 mg Lactated Ringer's (Ringers, Lactated) 1,000 mls @ 100 mls/hr IV ASDIRECTED [facility] Last Admin: 02/13/17 14:44 Dose: 100 mls/hr Ketorolac Tromethamine (Toradol) 30 mg IVPUSH Q8H PRN PRN Reason: Pain Stop: 02/18/17 11:58 Last Admin: 02/13/17 21:48 Dose: 30 mg Magnesium Hydroxide (Milk Of Magnesia) 30 ml PO BID PRN PRN Reason: Constipation Verify Scopolamine (Patch) 0 each TOP DAILY [facility] Last Admin: 02/15/17 08:22 Dose: 1 each Ondansetron HCl (Zofran) 8 mg IVPUSH Q4H PRN PRN Reason: Nausea/Vomiting Oxycodone/Acetaminophen (Percocet 325-5 Mg) 2 tab PO Q4H PRN PRN Reason: Pain Last Admin: 02/15/17 04:08 Dose: 2 tab Scopolamine (Transderm-Scop) 1.5 mg TOP Q72H [facility] Stop: 02/16/17 06:00 Last Admin: 02/13/17 08:20 Dose: 1.5 mg Senna (Senna) 8.6 mg PO BID PRN PRN Reason: Constipation Last Admin: 02/15/17 08:28 Dose: 8.6 mg Sodium Chloride (Saline Flush) 10 ml FLUSH DAILY [facility] Last Admin: 02/14/17 09:07 Dose: 10 ml Tramadol HCl (Ultram) 100 mg PO Q6H PRN PRN Reason: Pain Last Admin: 02/15/17 08:45 Dose: 100 mg Zolpidem Tartrate (Ambien) 5 mg PO BEDTIME PRN PRN Reason: Sleep Discontinued Medications Aspirin (Ecotrin) 325 mg PO BID [facility] Ropivacaine 49.25 ml/Ketorolac Tromethamine 30 mg/Epinephrine HCl 0.5 mg/ Clonidine HCl 80 mcg/ Sodium Chloride 48.45 ml 0 ml INJECT ONETIME ONE Stop: 02/13/17 09:31 Last Admin: 02/13/17 10:03 Dose: 100 ml Diazepam (Valium) 5 mg IVPUSH Q6H PRN PRN Reason: Spasms Diazepam (Valium) 5 mg IVPUSH Q6H PRN PRN Reason: Spasms Last Admin: 02/14/17 05:01 Dose: 5 mg Fentanyl (Sublimaze) Confirm Administered Dose 100 mcg .ROUTE .STK-MED ONE Stop: 02/13/17 07:15 Gabapentin (Neurontin) 300 mg PO ONETIME ONE Stop: 02/13/17 08:01 Last Admin: 02/13/17 08:19 Dose: 300 mg Gentamicin Sulfate (Gentamicin) Confirm Administered Dose 240 mg .ROUTE .STK- MED ONE Stop: 02/13/17 07:09 Last Admin: 02/13/17 10:12 Dose: 240 mg Hydromorphone HCl (Dilaudid) 1 mg IVPUSH ONETIME ONE Stop: 02/13/17 14:29 Last Admin: 02/13/17 14:42 Dose: 1 mg Cefazolin Sodium 2 gm/ Sodium (Chloride) 50 mls @ 100 mls/hr IV ONETIME ONE Stop: 02/13/17 09:29 Last Admin: 02/13/17 09:09 Dose: 100 mls/hr Lactated Ringer's (Ringers, Lactated) 1,000 mls @ 0 mls/hr IV ASDIRECTED [facility] PRN Reason: KVO Tranexamic Acid 1,000 mg/ (Sodium Chloride) 60 mls @ 240 mls/hr IV Q3H [facility] Stop: 02/13/17 12:44 Last Admin: 02/13/17 12:02 Dose: 240 mls/hr Lactated Ringer's (Ringers, Lactated) Confirm Administered Dose 1,000 mls @ as directed .ROUTE .STK-MED ONE Stop: 02/13/17 09:55 Acetaminophen 1,000 mg/ Premix 100 mls @ 400 mls/hr IV NOW ONE Stop: 02/13/17 13:14 Last Admin: 02/13/17 13:15 Dose: 400 mls/hr Ketamine HCl (Ketalar) 38 mg IV ASDIRECTED [facility] Midazolam HCl (Versed 1 Mg/Ml) Confirm Administered Dose 2 mg .ROUTE .STK-MED ONE Stop: 02/13/17 07:15 Morphine Sulfate (Morphine) 2 mg IVPUSH Q2H PRN PRN Reason: Pain Last Admin: 02/13/17 13:06 Dose: 2 mg Naloxone HCl (Narcan) 0.1 mg IVPUSH ASDIRECTED PRN PRN Reason: Oversedation Stop: 02/13/17 22:00 Oxycodone HCl (Oxycodone) 10 mg PO Q4H PRN PRN Reason: Pain Last Admin: 02/14/17 09:04 Dose: 10 mg Povidone Iodine (Betadine 10% Soln) Confirm Administered Dose 1 ml .ROUTE .STK- MED ONE Stop: 02/13/17 07:09 Last Admin: 02/13/17 10:13 Dose: 30 ml Propofol (Diprivan 20 Ml) Confirm Administered Dose 200 mg .ROUTE .STK-MED ONE Stop: 02/13/17 07:15 Propofol (Diprivan 20 Ml) Confirm Administered Dose 200 mg .ROUTE .STK-MED ONE Stop: 02/13/17 10:03 Propofol (Diprivan 20 Ml) Confirm Administered Dose 200 mg .ROUTE .STK-MED ONE Stop: 02/13/17 11:19 - Exam Quality Assessment: No: Supplemental Oxygen General: Alert, Oriented, Cooperative, No Acute Distress Neck: Supple Lungs: Normal Respiratory Effort GI/Abdominal Exam: Soft, No Distention Extremities: No Pedal Edema, Other (left knee wrapped with JOSSE wrap. Can wiggle toes) Skin: Warm, Dry Psy/Mental Status: Alert, Normal Affect - Problem List & Annotations (1) Post-traumatic osteoarthritis of left knee SNOMED Code(s): 825486187, 015298722 Code(s): M17.32 - UNILATERAL POST-TRAUMATIC OSTEOARTHRITIS, LEFT KNEE Status: Acute Current Visit: No (2) Diabetes mellitus type II, controlled SNOMED Code(s): 27583864 Code(s): E11.9 - TYPE 2 DIABETES MELLITUS WITHOUT COMPLICATIONS Status: Chronic Current Visit: Yes Qualifiers: Diabetes mellitus complication status: without complication Diabetes mellitus long-term insulin use: without stamper blocker use Qualified Code(s): E11.9 - Type 2 diabetes mellitus without complications - Problem List Review Problem List Initiated/Reviewed/Updated: Yes - My Orders Last 24 Hours: My Active Orders 02/15/17 17:00 GLUCOSE POC LAB TO COLLECT [POC] BIDAC 02/16/17 05:15 BASIC METABOLIC PANEL,BMP [CHEM] Timed - Plan Plan:: Assessment and plan - Left knee osteoarthritis status post total knee arthroplasty - stable postoperatively though he has struggled with pain control. Seems to be doing a little better today. -Postop cares per orthopedics team -ASA 325 mg BID x1 month -Bowel stimulation Type 2 diabetes mellitus, controlled - off medications at this time. Sugars acceptable. -twice a day Accu-Cheks -Consider sliding scale if needed Girish Giron M.D.
--- NOTE | 2017-02-15 11:26 | PCM.PN ---
- General Info Date of Service: 02/15/17 Functional Status: Reports: Pain Controlled, Tolerating Diet, Ambulating, Urinating - Patient Data Vitals - Most Recent: Last Vital Signs Temp 36.9 C 02/15/17 07:31 Pulse 68 02/15/17 07:31 Resp 20 02/15/17 07:31 BP 137/64 02/15/17 07:31 Pulse Ox 89 L 02/15/17 07:31 Weight - Most Recent: 305 lb 11.193 oz I&O - Last 24 Hours: Intake & Output 02/14/17 02/15/17 02/15/17 22:59 06:59 14:59 Intake Total 480 2020 Output Total 500 Balance 480 1520 Lab Results Last 24 Hours: Laboratory Results - last 24 hr 02/15/17 02/15/17 Range/Units 05:40 05:40 WBC 14.2 H (4.5-11.0) K/uL RBC 3.81 L (4.30-5.90) M/uL Hgb 11.8 L (12.0-15.0) g/dL Hct 34.2 L (40.0-54.0) % MCV 90 (80-98) fL MCH 31 (27-31) pg MCHC 35 (32-36) % Plt Count 163 (150-400) K/uL Neut % (Auto) 55 (36-66) % Lymph % (Auto) 20 L (24-44) % [place] % (Auto) 22 H (2-6) % Eos % (Auto) 2 (2-4) % Baso % (Auto) 0 (0-1) % Sodium 136 L (140-148) mmol/L Potassium 4.0 (3.6-5.2) mmol/L Chloride 103 (100-108) mmol/L Carbon Dioxide 30 (21-32) mmol/L Anion Gap 7.0 (5.0-14.0) mmol/L BUN 11 (7-18) mg/dL Creatinine 0.9 (0.8-1.3) mg/dL Est Cr Clr Drug Dosing 100.73 mL/min Estimated GFR (MDRD) > 60 (>60) Glucose 122 H (74-106) mg/dL Calcium 8.1 L (8.5-10.1) mg/dL Total Bilirubin 0.5 (0.2-1.0) mg/dL AST 16 (15-37) U/L ALT 31 (12-78) U/L Alkaline Phosphatase 45 L (46-116) U/L Total Protein 6.4 (6.4-8.2) g/dL Albumin 2.9 L (3.4-5.0) g/dL Globulin 3.5 (2.3-3.5) g/dL Albumin/Globulin Ratio 0.8 L (1.2-2.2) Med Orders - Current: Current Medications Al Hydroxide/Mg Hydroxide (Mag-Al Plus) 30 ml PO Q4H PRN PRN Reason: Constipation Aspirin (Ecotrin) 325 mg PO BID [facility] Last Admin: 02/15/17 08:22 Dose: 325 mg Bisacodyl (Dulcolax) 10 mg PO DAILY PRN PRN Reason: Constipation Diazepam (Valium.) 5 mg PO Q6H PRN PRN Reason: Spasms Last Admin: 02/15/17 04:07 Dose: 5 mg Diphenhydramine HCl (Benadryl) 25 mg IVPUSH Q4H PRN PRN Reason: Itching Docusate Sodium (Colace) 100 mg PO BID PRN PRN Reason: Constipation Last Admin: 02/14/17 20:03 Dose: 100 mg Hydromorphone HCl (Dilaudid) 0.5 - 1 mg IVPUSH Q2H PRN PRN Reason: Pain (severe 7-10) Hydroxyzine HCl (Atarax) 50 mg PO Q6H PRN PRN Reason: Sleep Last Admin: 02/13/17 20:52 Dose: 50 mg Lactated Ringer's (Ringers, Lactated) 1,000 mls @ 100 mls/hr IV ASDIRECTED [facility] Last Admin: 02/13/17 14:44 Dose: 100 mls/hr Ketorolac Tromethamine (Toradol) 30 mg IVPUSH Q8H PRN PRN Reason: Pain Stop: 02/18/17 11:58 Last Admin: 02/13/17 21:48 Dose: 30 mg Magnesium Hydroxide (Milk Of Magnesia) 30 ml PO BID PRN PRN Reason: Constipation Verify Scopolamine (Patch) 0 each TOP DAILY [facility] Last Admin: 02/15/17 08:22 Dose: 1 each Ondansetron HCl (Zofran) 8 mg IVPUSH Q4H PRN PRN Reason: Nausea/Vomiting Oxycodone/Acetaminophen (Percocet 325-5 Mg) 2 tab PO Q4H PRN PRN Reason: Pain Last Admin: 02/15/17 04:08 Dose: 2 tab Scopolamine (Transderm-Scop) 1.5 mg TOP Q72H [facility] Stop: 02/16/17 06:00 Last Admin: 02/13/17 08:20 Dose: 1.5 mg Senna (Senna) 8.6 mg PO BID PRN PRN Reason: Constipation Last Admin: 02/15/17 08:28 Dose: 8.6 mg Sodium Chloride (Saline Flush) 10 ml FLUSH DAILY [facility] Last Admin: 02/14/17 09:07 Dose: 10 ml Tramadol HCl (Ultram) 100 mg PO Q6H PRN PRN Reason: Pain Last Admin: 02/15/17 08:45 Dose: 100 mg Zolpidem Tartrate (Ambien) 5 mg PO BEDTIME PRN PRN Reason: Sleep Discontinued Medications Aspirin (Ecotrin) 325 mg PO BID [facility] Ropivacaine 49.25 ml/Ketorolac Tromethamine 30 mg/Epinephrine HCl 0.5 mg/ Clonidine HCl 80 mcg/ Sodium Chloride 48.45 ml 0 ml INJECT ONETIME ONE Stop: 02/13/17 09:31 Last Admin: 02/13/17 10:03 Dose: 100 ml Diazepam (Valium) 5 mg IVPUSH Q6H PRN PRN Reason: Spasms Diazepam (Valium) 5 mg IVPUSH Q6H PRN PRN Reason: Spasms Last Admin: 02/14/17 05:01 Dose: 5 mg Fentanyl (Sublimaze) Confirm Administered Dose 100 mcg .ROUTE .STK-MED ONE Stop: 02/13/17 07:15 Gabapentin (Neurontin) 300 mg PO ONETIME ONE Stop: 02/13/17 08:01 Last Admin: 02/13/17 08:19 Dose: 300 mg Gentamicin Sulfate (Gentamicin) Confirm Administered Dose 240 mg .ROUTE .STK- MED ONE Stop: 02/13/17 07:09 Last Admin: 02/13/17 10:12 Dose: 240 mg Hydromorphone HCl (Dilaudid) 1 mg IVPUSH ONETIME ONE Stop: 02/13/17 14:29 Last Admin: 02/13/17 14:42 Dose: 1 mg Cefazolin Sodium 2 gm/ Sodium (Chloride) 50 mls @ 100 mls/hr IV ONETIME ONE Stop: 02/13/17 09:29 Last Admin: 02/13/17 09:09 Dose: 100 mls/hr Lactated Ringer's (Ringers, Lactated) 1,000 mls @ 0 mls/hr IV ASDIRECTED [facility] PRN Reason: KVO Tranexamic Acid 1,000 mg/ (Sodium Chloride) 60 mls @ 240 mls/hr IV Q3H [facility] Stop: 02/13/17 12:44 Last Admin: 02/13/17 12:02 Dose: 240 mls/hr Lactated Ringer's (Ringers, Lactated) Confirm Administered Dose 1,000 mls @ as directed .ROUTE .STK-MED ONE Stop: 02/13/17 09:55 Acetaminophen 1,000 mg/ Premix 100 mls @ 400 mls/hr IV NOW ONE Stop: 02/13/17 13:14 Last Admin: 02/13/17 13:15 Dose: 400 mls/hr Ketamine HCl (Ketalar) 38 mg IV ASDIRECTED [facility] Midazolam HCl (Versed 1 Mg/Ml) Confirm Administered Dose 2 mg .ROUTE .STK-MED ONE Stop: 02/13/17 07:15 Morphine Sulfate (Morphine) 2 mg IVPUSH Q2H PRN PRN Reason: Pain Last Admin: 02/13/17 13:06 Dose: 2 mg Naloxone HCl (Narcan) 0.1 mg IVPUSH ASDIRECTED PRN PRN Reason: Oversedation Stop: 02/13/17 22:00 Oxycodone HCl (Oxycodone) 10 mg PO Q4H PRN PRN Reason: Pain Last Admin: 02/14/17 09:04 Dose: 10 mg Povidone Iodine (Betadine 10% Soln) Confirm Administered Dose 1 ml .ROUTE .STK- MED ONE Stop: 02/13/17 07:09 Last Admin: 02/13/17 10:13 Dose: 30 ml Propofol (Diprivan 20 Ml) Confirm Administered Dose 200 mg .ROUTE .STK-MED ONE Stop: 02/13/17 07:15 Propofol (Diprivan 20 Ml) Confirm Administered Dose 200 mg .ROUTE .STK-MED ONE Stop: 02/13/17 10:03 Propofol (Diprivan 20 Ml) Confirm Administered Dose 200 mg .ROUTE .STK-MED ONE Stop: 02/13/17 11:19 - Exam General: Alert, Oriented Extremities: Normal Inspection Peripheral Pulses: 2+: Dorsalis Pedis (L), Dorsalis Pedis (R) Skin: Warm, Dry, Intact Wound/Incisions: Healing Well, Dressing Dry and Intact Neurological: No New Focal Deficit, Strength Equal Bilateral, Reflexes Equal Bilateral Psy/Mental Status: Alert - Problem List Review Problem List Initiated/Reviewed/Updated: Yes - My Orders Last 24 Hours: My Active Orders 02/14/17 10:30 Diazepam [Valium] 5 mg PO Q6H PRN 02/14/17 10:51 Acetaminophen/oxyCODONE [Percocet 325-5 MG] 2 tab PO Q4H PRN 02/16/17 05:15 CBC WITH AUTO DIFF [HEME] DAILY 02/17/17 05:15 CBC WITH AUTO DIFF [HEME] DAILY - Plan Plan:: Assessment and plan - Left knee osteoarthritis status post total knee arthroplasty - patient is doing well. He is ambulating frequently. He does need extra work with strengthening at this time. He is quite unsteady. Patient also has a drop in his saturations down to 70% when ambulating. Patient does admit to smoking. I will start Truong ge at this time. We'll continue to watch him over the weekend to increase his strengthening. At this time I do not feel comfortable enough to discharge the patient. I would like him to go to a correction facility which all of them are full at this time. We'll readdress this on Saturday. Patient will continue to work on strengthening with PT OT and pain management.
[2017-02-15] MEDS ORDERED: Albuterol/Ipratropium 3.0-0.5 MG/3 ML Neb Soln NEB SCH (13:00)
[2017-02-15 13:23] VITALS: BP 121/62
[2017-02-15] MEDS: Sodium Chloride 0.9% 10 ML Syringe FLUSH SCH (14:04)
--- NOTE | 2017-02-15 14:35 | CR ---
Heart size within normal limits. Mild interstitial thickening which may be chronic. No focal consolid ation.
--- NOTE | 2017-02-25 10:20 | PCM.DCSUM1 ---
Discharge Summary - Hospital Course Free Text/Narrative:: Tigre is a pleasant 56-year-old male who is status postop day 3 of a left total knee replacement. He is doing very well. Patient is starting to ambulate with going difficulties. His swelling has improved. Patient is requesting to go to alf today. - Discharge Data Discharge Date: 02/15/17 Discharge Disposition: DC/Tfer to SNF 03 Condition: Good - Patient Summary/Data Consults: Consultations 02/13/17 11:58 Consult to Physician [CONS] Routine Consulting Provider: Girish Giron Call Completed to Consulting Physician: Yes OT Evaluation and Treatment [CONS] Routine Please Evaluate and Treat. OT Reason for Consult: Strengthening This query below is only for informational purposes and is not editable. PT Evaluation and Treatment [CONS] Routine Please Evaluate and Treat. PT Reason for Consult: Strengthening This query below is only for informational purposes and is not editable. - Patient Instructions Diet: Usual Diet as Tolerated Activity: Apply Ice, As Tolerated Driving: Do Not Drive Showering/Bathing: May Shower Wound/Incision Care: Keep Operative Site/Wound Site Clean and Dry, Change Dressing Daily Notify Provider of: Fever, Increased Pain, Swelling and Redness, Drainage, Nausea and/or Vomiting - Discharge Plan Prescriptions/Med Rec: Acetaminophen/oxyCODONE [Percocet 325-5 MG] 1 tab PO Q4H PRN #90 tablet PRN Reason: Pain Aspirin [Ecotrin] 325 mg PO DAILY #30 tab.ec Home Medications: Home Meds Lidocaine 5% [Lidoderm 5%] 1 patch TOP DAILY 02/12/17 [History] Acetaminophen/oxyCODONE [Percocet 325-5 MG] 1 tab PO Q4H PRN #90 tablet [Rx] Aspirin [Ecotrin] 325 mg PO DAILY #30 tab.ec 02/15/17 [Rx] Referrals: Shaila Landaverde, LENS DOTTER [Nurse Practitioner] - (2 week follow up) - Discharge Summary/Plan Comment DC Time >30 min.: Yes Discharge Summary/Plan Comment: Patient will be discharged to longterm facility with . He will continue to elevate and ice. He was sent home on Percocet and aspirin. Patient will follow-up with me in 3 weeks for staple removal. I did educate him on what to watch for for secondary signs of infection. - Patient Data Vitals - Most Recent: Last Vital Signs Temp 37.3 C 02/15/17 13:21 Pulse 100 02/15/17 13:47 Resp 20 02/15/17 13:21 BP 121/62 02/15/17 13:21 Pulse Ox 97 02/15/17 13:47 Weight - Most Recent: 305 lb 11.193 oz Med Orders - Current: Current Medications Discontinued Medications Al Hydroxide/Mg Hydroxide (Mag-Al Plus) 30 ml PO Q4H PRN PRN Reason: Constipation Albuterol/Ipratropium (Duoneb 3.0-0.5 Mg/3 Ml) 3 ml NEB Q4H FIDEL Last Admin: 02/15/17 13:47 Dose: 3 ml Aspirin (Ecotrin) 325 mg PO BID FIDEL Aspirin (Ecotrin) 325 mg PO BID FIDEL Last Admin: 02/15/17 08:22 Dose: 325 mg Bisacodyl (Dulcolax) 10 mg PO DAILY PRN PRN Reason: Constipation Ropivacaine 49.25 ml/Ketorolac Tromethamine 30 mg/Epinephrine HCl 0.5 mg/ Clonidine HCl 80 mcg/ Sodium Chloride 48.45 ml 0 ml INJECT ONETIME ONE Stop: 02/13/17 09:31 Last Admin: 02/13/17 10:03 Dose: 100 ml Diazepam (Valium) 5 mg IVPUSH Q6H PRN PRN Reason: Spasms Diazepam (Valium) 5 mg IVPUSH Q6H PRN PRN Reason: Spasms Last Admin: 02/14/17 05:01 Dose: 5 mg Diazepam (Valium.) 5 mg PO Q6H PRN PRN Reason: Spasms Last Admin: 02/15/17 04:07 Dose: 5 mg Diphenhydramine HCl (Benadryl) 25 mg IVPUSH Q4H PRN PRN Reason: Itching Docusate Sodium (Colace) 100 mg PO BID PRN PRN Reason: Constipation Last Admin: 02/14/17 20:03 Dose: 100 mg Fentanyl (Sublimaze) Confirm Administered Dose 100 mcg .ROUTE .STK-MED ONE Stop: 02/13/17 07:15 Gabapentin (Neurontin) 300 mg PO ONETIME ONE Stop: 02/13/17 08:01 Last Admin: 02/13/17 08:19 Dose: 300 mg Gentamicin Sulfate (Gentamicin) Confirm Administered Dose 240 mg .ROUTE .STK- MED ONE Stop: 02/13/17 07:09 Last Admin: 02/13/17 10:12 Dose: 240 mg Hydromorphone HCl (Dilaudid) 1 mg IVPUSH ONETIME ONE Stop: 02/13/17 14:29 Last Admin: 02/13/17 14:42 Dose: 1 mg Hydromorphone HCl (Dilaudid) 0.5 - 1 mg IVPUSH Q2H PRN PRN Reason: Pain (severe 7-10) Hydroxyzine HCl (Atarax) 50 mg PO Q6H PRN PRN Reason: Sleep Last Admin: 02/13/17 20:52 Dose: 50 mg Cefazolin Sodium 2 gm/ Sodium (Chloride) 50 mls @ 100 mls/hr IV ONETIME ONE Stop: 02/13/17 09:29 Last Admin: 02/13/17 09:09 Dose: 100 mls/hr Lactated Ringer's (Ringers, Lactated) 1,000 mls @ 0 mls/hr IV ASDIRECTED [facility] PRN Reason: KVO Tranexamic Acid 1,000 mg/ (Sodium Chloride) 60 mls @ 240 mls/hr IV Q3H [facility] Stop: 02/13/17 12:44 Last Admin: 02/13/17 12:02 Dose: 240 mls/hr Lactated Ringer's (Ringers, Lactated) Confirm Administered Dose 1,000 mls @ as directed .ROUTE .STK-MED ONE Stop: 02/13/17 09:55 Lactated Ringer's (Ringers, Lactated) 1,000 mls @ 100 mls/hr IV ASDIRECTED [facility] Last Admin: 02/13/17 14:44 Dose: 100 mls/hr Acetaminophen 1,000 mg/ Premix 100 mls @ 400 mls/hr IV NOW ONE Stop: 02/13/17 13:14 Last Admin: 02/13/17 13:15 Dose: 400 mls/hr Ketamine HCl (Ketalar) 38 mg IV ASDIRECTED [facility] Ketorolac Tromethamine (Toradol) 30 mg IVPUSH Q8H PRN PRN Reason: Pain Stop: 02/18/17 11:58 Last Admin: 02/13/17 21:48 Dose: 30 mg Magnesium Hydroxide (Milk Of Magnesia) 30 ml PO BID PRN PRN Reason: Constipation Midazolam HCl (Versed 1 Mg/Ml) Confirm Administered Dose 2 mg .ROUTE .STK-MED ONE Stop: 02/13/17 07:15 Morphine Sulfate (Morphine) 2 mg IVPUSH Q2H PRN PRN Reason: Pain Last Admin: 02/13/17 13:06 Dose: 2 mg Naloxone HCl (Narcan) 0.1 mg IVPUSH ASDIRECTED PRN PRN Reason: Oversedation Stop: 02/13/17 22:00 Verify Scopolamine (Patch) 0 each TOP DAILY FIDEL Last Admin: 02/15/17 08:22 Dose: 1 each Ondansetron HCl (Zofran) 8 mg IVPUSH Q4H PRN PRN Reason: Nausea/Vomiting Oxycodone HCl (Oxycodone) 10 mg PO Q4H PRN PRN Reason: Pain Last Admin: 02/14/17 09:04 Dose: 10 mg Oxycodone/Acetaminophen (Percocet 325-5 Mg) 2 tab PO Q4H PRN PRN Reason: Pain Last Admin: 02/15/17 14:03 Dose: 2 tab Povidone Iodine (Betadine 10% Soln) Confirm Administered Dose 1 ml .ROUTE .STK- MED ONE Stop: 02/13/17 07:09 Last Admin: 02/13/17 10:13 Dose: 30 ml Propofol (Diprivan 20 Ml) Confirm Administered Dose 200 mg .ROUTE .STK-MED ONE Stop: 02/13/17 07:15 Propofol (Diprivan 20 Ml) Confirm Administered Dose 200 mg .ROUTE .STK-MED ONE Stop: 02/13/17 10:03 Propofol (Diprivan 20 Ml) Confirm Administered Dose 200 mg .ROUTE .STK-MED ONE Stop: 02/13/17 11:19 Scopolamine (Transderm-Scop) 1.5 mg TOP Q72H FIDEL Stop: 02/16/17 06:00 Last Admin: 02/13/17 08:20 Dose: 1.5 mg Senna (Senna) 8.6 mg PO BID PRN PRN Reason: Constipation Last Admin: 02/15/17 08:28 Dose: 8.6 mg Sodium Chloride (Saline Flush) 10 ml FLUSH DAILY [facility] Last Admin: 02/15/17 14:04 Dose: 10 ml Tramadol HCl (Ultram) 100 mg PO Q6H PRN PRN Reason: Pain Last Admin: 02/15/17 08:45 Dose: 100 mg Zolpidem Tartrate (Ambien) 5 mg PO BEDTIME PRN PRN Reason: Sleep - Exam General: Reports: Alert, Oriented Extremities: Normal Inspection, Normal Capillary Refill, Pedal Edema, Joint Swelling Skin: Reports: Warm, Dry, Intact Wound/Incisions: Reports: Healing Well, Dressing Dry and Intact, No Drainage Neurological: Reports: No New Focal Deficit Psy/Mental Status: Reports: Alert, Normal Affect *Q Meaningful Use (DIS) - VTE *Q VTE Criteria *Q: - Stroke *Q Stroke Criteria *Q: - AMI *Q AMI Criteria *Q:
== END 2017-02-15 15:20 | DRG 470 ==
LOC: JP.SDS 07:28 → JP.MS 07:28 → EDSTATUS 07:30 → JP.MS 11:58
PROVIDERS: ADMIT Orthopaedic Surgery; ATTEND Orthopaedic Surgery
PROC: 0SRD0J9 Replacement of Left Knee Joint with Synthetic Substitute, Cemented, Open Approach (ICD-10-PCS; principal; 2017-02-13)
PROC: 0SCD0ZZ Extirpation of Matter from Left Knee Joint, Open Approach (ICD-10-PCS; principal; 2017-02-13)
DX: M17.12 Unilateral primary osteoarthritis, left knee (principal); Z68.41 Body mass index [BMI] 40.0-44.9, adult; I10 Essential (primary) hypertension; F17.210 Nicotine dependence, cigarettes, uncomplicated; Z79.84 Long term (current) use of oral hypoglycemic drugs; E66.01 Morbid (severe) obesity due to excess calories; E11.9 Type 2 diabetes mellitus without complications; E55.9 Vitamin D deficiency, unspecified; F32.9 Major depressive disorder, single episode, unspecified; M54.9 Dorsalgia, unspecified; G89.29 Other chronic pain; R09.02 Hypoxemia
CPT/HCPCS: 36415; 71020; 71020-26; 73560-26-LT; 73560-LT; 80053; 82962; 85025; 86850; 86900; 86901; 94762; 97110-GP; 97116-GP; 97162-GP; 97165-GO; 97530-GP; A9270-GY; C1713; C1776; J0131; J0171; J0690; J0735; J1170; J1580; J1885; J2250; J2270; J2704; J2795; J3010; J3360; J7050; J7120; J7620

== ENCOUNTER 2017-02-16 13:14 | Inpatient (IN) | payer OTHER ==
[2017-02-16] MEDS ORDERED: Ondansetron 4 MG Tab.DIS PO PRN (14:20)
[2017-02-16] MEDS ORDERED: Albuterol 0.083% 2.5 MG/3 ML Neb Soln NEB PRN (14:20)
[2017-02-16] MEDS ORDERED: Bisacodyl 5 MG Tab PO PRN (14:20)
[2017-02-16] MEDS ORDERED: Docusate Sodium 100 MG Cap PO PRN (14:20)
[2017-02-16] MEDS ORDERED: Sodium Chloride 0.9% 10 ML Syringe FLUSH PRN (14:20)
[2017-02-16] MEDS ORDERED: Magnesium Hydroxide 400 MG/5 ML Susp 30 ML Cup PO PRN (14:20)
[2017-02-16] MEDS ORDERED: Albuterol/Ipratropium 3.0-0.5 MG/3 ML Neb Soln NEB PRN (14:20)
[2017-02-16] MEDS ORDERED: Lactated Ringers 1,000 ML IV SCH (14:30)
--- NOTE | 2017-02-16 14:42 | EDM.PDOC ---
ED HPI GENERAL MEDICAL PROBLEM - General Chief Complaint: Lower Extremity Injury/Pain Stated Complaint: DISCHARGED YESTERDAY;SOMETHING WRONG W/LT LEG Time Seen by Provider: 02/16/17 13:55 Source of Information: Reports: Patient, Family History Limitations: Reports: No Limitations - History of Present Illness INITIAL COMMENTS - FREE TEXT/NARRATIVE: pt arrived with increased swelling in the left leg. He had a total knee done and was discharged saturday. He now has increased redness and swelling in the leg. it i feeling hot and he has troble moving. Onset: Today Duration: Hour(s): Location: Reports: Lower Extremity, Left Associated Symptoms: Reports: No Other Symptoms Left Leg Pain Score (Numeric/FACES): 4 - Related Data Allergies Allergy/AdvReac Type Severity Reaction Status Date / Time No Known Allergies Allergy Verified 02/16/17 13:57 Home Meds: Home Meds Ketorolac [Toradol] 10 mg PO TID PRN 01/03/17 [History] Lidocaine 5% [Lidoderm 5%] 1 patch TOP DAILY 02/12/17 [History] Acetaminophen/oxyCODONE [Percocet 325-5 MG] 1 tab PO Q4H PRN #90 tablet [Rx] Aspirin [Ecotrin] 325 mg PO DAILY #30 tab.ec 02/15/17 [Rx] Past Medical History HEENT History: Reports: Impaired Vision Respiratory History: Reports: SOB Musculoskeletal History: Reports: Other (See Below) Other Musculoskeletal History: left knee pain - Past Surgical History Musculoskeletal Surgical History: Reports: Knee Replacement Social & Family History - Tobacco Use Smoking Status *Q: Current Every Day Smoker Years of Tobacco use: 40 Packs/Tins Daily: 1 Second Hand Smoke Exposure: No - Caffeine Use Caffeine Use: Reports: None - Alcohol Use Days Per Week of Alcohol Use: 3 Number of Drinks Per Day: 1 Total Drinks Per Week: 3 - Recreational Drug Use Recreational Drug Use: No Review of Systems - Review of Systems Review Of Systems: See Below Constitutional: Reports: No Symptoms Eyes: Reports: No Symptoms Ears: Reports: No Symptoms Nose: Reports: No Symptoms Mouth/Throat: Reports: No Symptoms Respiratory: Reports: No Symptoms Cardiovascular: Reports: No Symptoms GI/Abdominal: Reports: No Symptoms Genitourinary: Reports: No Symptoms Musculoskeletal: Reports: Other (increased redness and swelling in the left knee and leg. ) Skin: Reports: No Symptoms ED EXAM, GENERAL - Physical Exam Exam: See Below Free Text/Narrative:: pt has increased swelling and redness in the left knee and lower leg. He had a total Knee done by Dr Glenn Medeiros and was discharged on Saturday. Exam Limited By: No Limitations General Appearance: Alert, Anxious Ears: Normal TMs Nose: Normal Inspection Throat/Mouth: Normal Inspection Head: Atraumatic Neck: Normal Inspection Respiratory/Chest: No Respiratory Distress Cardiovascular: Regular Rate, Rhythm GI/Abdominal: Soft, Non-Tender (Male) Exam: Deferred Rectal (Males) Exam: Deferred Back Exam: Normal Inspection Extremities: Normal Inspection Neurological: Alert, Oriented, Normal Cognition Course - Vital Signs Last Recorded V/S: Last Vital Signs Temp 36.1 C 02/16/17 13:54 Pulse 79 02/16/17 13:54 Resp 18 02/16/17 13:54 BP 114/69 02/16/17 13:54 Pulse Ox 95 02/16/17 13:54 - Orders/Labs/Meds Orders: Active Orders 24 hr Category Date Time Status Patient Status [ADT] Routine ADT 02/16/17 14:20 Active Ambulate [RC] QID Care 02/16/17 14:20 Active Intake and Output [RC] QSHIFT Care 02/16/17 14:22 Active May Shower [RC] ASDIRECTED Care 02/16/17 14:20 Active Notify Provider Consults [RC] ASDIRECTED Care 02/16/17 14:26 Active Notify Provider Vital Signs [RC] ASDIRECTED Care 02/16/17 14:22 Active Oxygen Therapy [RC] PRN Care 02/16/17 14:20 Active Peripheral IV Care [RC] . DIRECTED Care 02/16/17 14:25 Active RT Aerosol Therapy [RC] ASDIRECTED Care 02/16/17 14:25 Active Up With Assistance [RC] ASDIRECTED Care 02/16/17 14:20 Active Up to Chair [RC] QID Care 02/16/17 14:20 Active VTE/DVT Education [RC] Per Unit Routine Care 02/16/17 14:20 Active Vital Signs [RC] Q4H Care 02/16/17 14:20 Active Consult to Physician [CONS] Routine Cons 02/16/17 14:20 Ordered OT Evaluation and Treatment [CONS] Routine Cons 02/16/17 14:20 Active PT Evaluation and Treatment [CONS] Routine Cons 02/16/17 14:20 Active Regular Diet [DIET] Diet 02/16/17 Dinner Active VL Duplex Lwr Ext Veins Ltd Lt [US] Stat Exams 02/16/17 14:20 Ordered BASIC METABOLIC PANEL,BMP [CHEM] DAILY Lab 02/17/17 14:30 Ordered CBC WITH AUTO DIFF [HEME] DAILY Lab 02/17/17 14:30 Ordered Acetaminophen/oxyCODONE [Percocet 325-5 MG] Med 02/16/17 14:20 Active 2 tab PO Q4H PRN Albuterol [Proventil Neb Soln] Med 02/16/17 14:20 Active 2.5 mg NEB Q4H PRN Albuterol/Ipratropium [DuoNeb 3.0-0.5 MG/3 ML] Med 02/16/17 14:20 Active 3 ml NEB QID PRN Aspirin [Ecotrin] Med 02/17/17 09:00 Active 325 mg PO DAILY Bisacodyl [Dulcolax] Med 02/16/17 14:20 Active 5 mg PO DAILY PRN Docusate Sodium [Colace] Med 02/16/17 14:20 Active 100 mg PO BID PRN Docusate Sodium/Sennosides [Senna Plus] Med 02/16/17 14:20 Active 1 tab PO BID PRN Lactated Ringers [Ringers, Lactated] 1,000 ml Med 02/16/17 14:30 Active IV ASDIRECTED Magnesium Hydroxide [Milk of Magnesia] Med 02/16/17 14:20 Active 30 ml PO Q12H PRN Ondansetron [Zofran ODT] Med 02/16/17 14:20 Active 4 mg PO Q6H PRN Sodium Chloride 0.9% [Saline Flush] Med 02/16/17 14:20 Active 10 ml FLUSH ASDIRECTED PRN Vancomycin Med 02/16/17 15:00 Active See Dose Instructions IV .PHARMACY TO DOSE Peripheral IV Insertion Adult [OM.PC] Routine Oth 02/16/17 14:20 Ordered Sequential Compression Device [OM.PC] Per Unit Routine Oth 02/16/17 14:23 Ordered Resuscitation Status Routine Resus Stat 09/16/17 14:20 Ordered Medication Orders Albuterol (Proventil Neb Soln) 2.5 mg NEB Q4H PRN PRN Reason: Shortness Of Breath/wheezing Albuterol/Ipratropium (Duoneb 3.0-0.5 Mg/3 Ml) 3 ml NEB QID PRN PRN Reason: Shortness Of Breath/wheezing Aspirin (Ecotrin) 325 mg PO DAILY FIDEL Bisacodyl (Dulcolax) 5 mg PO DAILY PRN PRN Reason: Constipation Docusate Sodium (Colace) 100 mg PO BID PRN PRN Reason: Constipation Lactated Ringer's (Ringers, Lactated) 1,000 mls @ 125 mls/hr IV ASDIRECTED [facility] Magnesium Hydroxide (Milk Of Magnesia) 30 ml PO Q12H PRN PRN Reason: Constipation Ondansetron HCl (Zofran Odt) 4 mg PO Q6H PRN PRN Reason: Nausea able to take PO Oxycodone/Acetaminophen (Percocet 325-5 Mg) 2 tab PO Q4H PRN PRN Reason: Pain (moderate 4-6) Senna/Docusate Sodium (Senna Plus) 1 tab PO BID PRN PRN Reason: Constipation Sodium Chloride (Saline Flush) 10 ml FLUSH ASDIRECTED PRN PRN Reason: Keep Vein Open Vancomycin HCl (Vancomycin) 0 gm IV .PHARMACY TO DOSE [facility] Labs: Laboratory Tests 02/16/17 02/16/17 02/16/17 Range/Units 14:10 14:10 14:20 WBC 14.2 H (4.5-11.0) K/uL RBC 3.78 L (4.30-5.90) M/uL Hgb 11.3 L (12.0-15.0) g/dL Hct 33.4 L (40.0-54.0) % MCV 88 (80-98) fL MCH 30 (27-31) pg MCHC 34 (32-36) % Plt Count 176 (150-400) K/uL Neut % (Auto) 61 (36-66) % Lymph % (Auto) 21 L (24-44) % [place] % (Auto) 17 H (2-6) % Eos % (Auto) 2 (2-4) % Baso % (Auto) 0 (0-1) % Sodium 137 L (140-148) mmol/L Potassium 3.9 (3.6-5.2) mmol/L Chloride 103 (100-108) mmol/L Carbon Dioxide 28 (21-32) mmol/L Anion Gap 9.9 (5.0-14.0) mmol/L BUN 13 (7-18) mg/dL Creatinine 1.1 (0.8-1.3) mg/dL Est Cr Clr Drug Dosing 82.30 mL/min Estimated GFR (MDRD) > 60 (>60) Glucose 116 H (74-106) mg/dL Calcium 8.6 (8.5-10.1) mg/dL Total Bilirubin 0.8 D (0.2-1.0) mg/dL AST 27 (15-37) U/L ALT 35 (12-78) U/L Alkaline Phosphatase 50 (46-116) U/L Total Protein 7.1 (6.4-8.2) g/dL Albumin 3.0 L (3.4-5.0) g/dL Globulin 4.1 H (2.3-3.5) g/dL Albumin/Globulin Ratio 0.7 L (1.2-2.2) Urine Color [place] Urine Appearance Clear Urine pH 6.0 (4.5-8.0) Ur Specific [place] 1.015 (1.008-1.030) Urine Protein Trace (NEGATIVE) mg/dL Urine Glucose (UA) Normal (NEGATIVE) mg/dL Urine Ketones Negative (NEGATIVE) mg/dL Urine Occult Blood Moderate (NEGATIVE) Urine Nitrite Negative (NEGAITVE) Urine Bilirubin Negative (NEGATIVE) Urine Urobilinogen 4 (NORMAL) mg/dL Ur Leukocyte Esterase Negative (NEGATIVE) Urine RBC 0-5 (0-5) Urine WBC Not seen (0-5) Ur Epithelial Cells Rare Amorphous Sediment Not seen Urine Bacteria Few Urine Mucus Moderate Meds: Medications Generic Name Dose Route Start Last Admin Trade Name Freq PRN Reason Stop Dose Admin Albuterol 2.5 mg 02/16/17 14:20 Proventil Neb Soln NEB Q4H PRN Shortness Of Breath/wheezing Albuterol/Ipratropium 3 ml 02/16/17 14:20 Duoneb 3.0-0.5 Mg/3 Ml NEB QID PRN Shortness Of Breath/wheezing Aspirin 325 mg 02/17/17 09:00 Ecotrin PO DAILY FIDEL Bisacodyl 5 mg 02/16/17 14:20 Dulcolax PO DAILY PRN Constipation Docusate Sodium 100 mg 02/16/17 14:20 Colace PO BID PRN Constipation Lactated Ringer's 1,000 mls @ 125 mls/hr 02/16/17 14:30 Ringers, Lactated IV ASDIRECTED FIDEL Magnesium Hydroxide 30 ml 02/16/17 14:20 Milk Of Magnesia PO Q12H PRN Constipation Ondansetron HCl 4 mg 02/16/17 14:20 Zofran Odt PO Q6H PRN Nausea able to take PO Oxycodone/Acetaminophen 2 tab 02/16/17 14:20 Percocet 325-5 Mg PO Q4H PRN Pain (moderate 4-6) Senna/Docusate Sodium 1 tab 02/16/17 14:20 Senna Plus PO BID PRN Constipation Sodium Chloride 10 ml 02/16/17 14:20 Saline Flush FLUSH ASDIRECTED PRN Keep Vein Open Vancomycin HCl 0 gm 02/16/17 15:00 Vancomycin IV .PHARMACY TO DOSE FIDEL - Re-Assessments/Exams Free Text/Narrative Re-Assessment/Exam: 02/16/17 14:55 wbc was elevated. His other labs look ok. 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 - My Orders Last 24 Hours: My Active Orders 02/16/17 14:20 VL Duplex Lwr Ext Veins Ltd Lt [US] Stat - Assessment/Plan Last 24 Hours: My Active Orders 02/16/17 14:20 VL Duplex Lwr Ext Veins Ltd Lt [US] Stat
--- NOTE | 2017-02-16 14:51 | PCM.HP ---
H&P History of Present Illness - General Date of Service: 02/16/17 Admit Problem/Dx: Admission Diagnosis/Problem Admission Diagnosis/Problem Knee joint effusion Source of Information: Patient - History of Present Illness Initial Comments - Free Text/Narative: Patient is a pleasant 56 year old male who comes today from [facility]. He recently had surgery from Dr. Medeiros for a left total knee replacement. He was sent to [facility] yesterday. He comes in today with a big swallon red left knee. He states that he has had limited range of motion and pain in that knee. He states that there is not drainage at this time. He said he is running low fevers. Onset of Symptoms: Reports: Today, Sudden Duration of Symptoms: Reports: Hour(s): (12) Location: Reports: Lower Extremity, Left Quality: Reports: Ache, Burning Severity: Moderate Improves with: Reports: Cold Therapy Worsens with: Reports: Movement Associated Symptoms: Reports: No Other Symptoms Left Leg Pain Score (Numeric/FACES): 4 - Related Data Allergies/Adverse Reactions: Allergies Allergy/AdvReac Type Severity Reaction Status Date / Time No Known Allergies Allergy Verified 02/16/17 13:57 Home Medications: Home Meds Ketorolac [Toradol] 10 mg PO TID PRN 01/03/17 [History] Lidocaine 5% [Lidoderm 5%] 1 patch TOP DAILY 02/12/17 [History] Acetaminophen/oxyCODONE [Percocet 325-5 MG] 1 tab PO Q4H PRN #90 tablet [Rx] Aspirin [Ecotrin] 325 mg PO DAILY #30 tab.ec 02/15/17 [Rx] Past Medical History HEENT History: Reports: Impaired Vision Respiratory History: Reports: SOB Musculoskeletal History: Reports: Other (See Below) Other Musculoskeletal History: left knee pain - Past Surgical History Musculoskeletal Surgical History: Reports: Knee Replacement Social & Family History - Tobacco Use Smoking Status *Q: Current Every Day Smoker Years of Tobacco use: 40 Packs/Tins Daily: 1 Second Hand Smoke Exposure: No - Caffeine Use Caffeine Use: Reports: None - Alcohol Use Days Per Week of Alcohol Use: 3 Number of Drinks Per Day: 1 Total Drinks Per Week: 3 - Recreational Drug Use Recreational Drug Use: No H&P Review of Systems - Review of Systems: Review Of Systems: See Below General: Reports: No Symptoms Musculoskeletal: Reports: Leg Pain, Joint Pain, Joint Swelling Skin: Reports: Erythema Neurological: Reports: No Symptoms Exam - Exam Exam: See Below - Vital Signs Vital Signs: Last Vital Signs Temp 36.1 C 02/16/17 13:54 Pulse 79 02/16/17 13:54 Resp 18 02/16/17 13:54 BP 114/69 02/16/17 13:54 Pulse Ox 95 02/16/17 13:54 Weight: 305 lb 8.971 oz - Exam General: Alert, Oriented Extremities: Normal Capillary Refill, Joint Swelling, Limited Range of Motion ( left leg weakness due to recent surgery and swelling. ), Increased Warmth, Redness Peripheral Pulses: 2+: Dorsalis Pedis (L), Dorsalis Pedis (R) Skin: Warm, Dry, Intact Neurological: Abnormal Gait (due to left legged weakness) Neuro Extensive - Mental Status: Alert, Oriented x3 Psychiatric: Alert, Normal Affect - Patient Data Lab Results Last 24 hrs: Laboratory Results - last 24 hr 02/16/17 02/16/17 02/16/17 Range/Units 14:10 14:10 14:20 WBC 14.2 H (4.5-11.0) K/uL RBC 3.78 L (4.30-5.90) M/uL Hgb 11.3 L (12.0-15.0) g/dL Hct 33.4 L (40.0-54.0) % MCV 88 (80-98) fL MCH 30 (27-31) pg MCHC 34 (32-36) % Plt Count 176 (150-400) K/uL Neut % (Auto) 61 (36-66) % Lymph % (Auto) 21 L (24-44) % [place] % (Auto) 17 H (2-6) % Eos % (Auto) 2 (2-4) % Baso % (Auto) 0 (0-1) % Sodium 137 L (140-148) mmol/L Potassium 3.9 (3.6-5.2) mmol/L Chloride 103 (100-108) mmol/L Carbon Dioxide 28 (21-32) mmol/L Anion Gap 9.9 (5.0-14.0) mmol/L BUN 13 (7-18) mg/dL Creatinine 1.1 (0.8-1.3) mg/dL Est Cr Clr Drug Dosing 82.30 mL/min Estimated GFR (MDRD) > 60 (>60) Glucose 116 H (74-106) mg/dL Calcium 8.6 (8.5-10.1) mg/dL Total Bilirubin 0.8 D (0.2-1.0) mg/dL AST 27 (15-37) U/L ALT 35 (12-78) U/L Alkaline Phosphatase 50 (46-116) U/L Total Protein 7.1 (6.4-8.2) g/dL Albumin 3.0 L (3.4-5.0) g/dL Globulin 4.1 H (2.3-3.5) g/dL Albumin/Globulin Ratio 0.7 L (1.2-2.2) Urine Color [place] Urine Appearance Clear Urine pH 6.0 (4.5-8.0) Ur Specific [place] 1.015 (1.008-1.030) Urine Protein Trace (NEGATIVE) mg/dL Urine Glucose (UA) Normal (NEGATIVE) mg/dL Urine Ketones Negative (NEGATIVE) mg/dL Urine Occult Blood Moderate (NEGATIVE) Urine Nitrite Negative (NEGAITVE) Urine Bilirubin Negative (NEGATIVE) Urine Urobilinogen 4 (NORMAL) mg/dL Ur Leukocyte Esterase Negative (NEGATIVE) Urine RBC 0-5 (0-5) Urine WBC Not seen (0-5) Ur Epithelial Cells Rare Amorphous Sediment Not seen Urine Bacteria Few Urine Mucus Moderate Result Diagrams: 02/16/17 14:10 02/16/17 14:10 *Q Meaningful Use (ADM) - VTE *Q VTE Criteria *Q: - Stroke *Q Stroke Criteria *Q: - AMI *Q AMI Criteria *Q: Problem List Initiated/Reviewed/Updated: Yes Orders Last 24hrs: Active Orders 24 hr Category Date Time Status Patient Status [ADT] Routine ADT 02/16/17 14:20 Active Ambulate [RC] QID Care 02/16/17 14:20 Active Intake and Output [RC] QSHIFT Care 02/16/17 14:22 Active May Shower [RC] ASDIRECTED Care 02/16/17 14:20 Active Notify Provider Consults [RC] ASDIRECTED Care 02/16/17 14:26 Active Notify Provider Vital Signs [RC] ASDIRECTED Care 02/16/17 14:22 Active Oxygen Therapy [RC] PRN Care 02/16/17 14:20 Active Peripheral IV Care [RC] . DIRECTED Care 02/16/17 14:25 Active RT Aerosol Therapy [RC] ASDIRECTED Care 02/16/17 14:25 Active Up With Assistance [RC] ASDIRECTED Care 02/16/17 14:20 Active Up to Chair [RC] QID Care 02/16/17 14:20 Active VTE/DVT Education [RC] Per Unit Routine Care 02/16/17 14:20 Active Vital Signs [RC] Q4H Care 02/16/17 14:20 Active Consult to Physician [CONS] Routine Cons 02/16/17 14:20 Ordered OT Evaluation and Treatment [CONS] Routine Cons 02/16/17 14:20 Active PT Evaluation and Treatment [CONS] Routine Cons 02/16/17 14:20 Active Regular Diet [DIET] Diet 02/16/17 Dinner Active VL Duplex Lwr Ext Veins Ltd Lt [US] Stat Exams 02/16/17 14:20 Ordered BASIC METABOLIC PANEL,BMP [CHEM] DAILY Lab 02/17/17 14:30 Ordered CBC WITH AUTO DIFF [HEME] DAILY Lab 02/17/17 14:30 Ordered Acetaminophen/oxyCODONE [Percocet 325-5 MG] Med 02/16/17 14:20 Active 2 tab PO Q4H PRN Albuterol [Proventil Neb Soln] Med 02/16/17 14:20 Active 2.5 mg NEB Q4H PRN Albuterol/Ipratropium [DuoNeb 3.0-0.5 MG/3 ML] Med 02/16/17 14:20 Active 3 ml NEB QID PRN Aspirin [Ecotrin] Med 02/17/17 09:00 Active 325 mg PO DAILY Bisacodyl [Dulcolax] Med 02/16/17 14:20 Active 5 mg PO DAILY PRN Docusate Sodium [Colace] Med 02/16/17 14:20 Active 100 mg PO BID PRN Docusate Sodium/Sennosides [Senna Plus] Med 02/16/17 14:20 Active 1 tab PO BID PRN Lactated Ringers [Ringers, Lactated] 1,000 ml Med 02/16/17 14:30 Active IV ASDIRECTED Magnesium Hydroxide [Milk of Magnesia] Med 02/16/17 14:20 Active 30 ml PO Q12H PRN Ondansetron [Zofran ODT] Med 02/16/17 14:20 Active 4 mg PO Q6H PRN Sodium Chloride 0.9% [Saline Flush] Med 02/16/17 14:20 Active 10 ml FLUSH ASDIRECTED PRN Vancomycin Med 02/16/17 15:00 Active See Dose Instructions IV .PHARMACY TO DOSE Peripheral IV Insertion Adult [OM.PC] Routine Oth 02/16/17 14:20 Ordered Sequential Compression Device [OM.PC] Per Unit Routine Oth 02/16/17 14:23 Ordered Resuscitation Status Routine Resus Stat 02/16/17 14:20 Ordered Medication Orders Albuterol (Proventil Neb Soln) 2.5 mg NEB Q4H PRN PRN Reason: Shortness Of Breath/wheezing Albuterol/Ipratropium (Duoneb 3.0-0.5 Mg/3 Ml) 3 ml NEB QID PRN PRN Reason: Shortness Of Breath/wheezing Aspirin (Ecotrin) 325 mg PO DAILY FIDEL Bisacodyl (Dulcolax) 5 mg PO DAILY PRN PRN Reason: Constipation Docusate Sodium (Colace) 100 mg PO BID PRN PRN Reason: Constipation Lactated Ringer's (Ringers, Lactated) 1,000 mls @ 125 mls/hr IV ASDIRECTED FIDEL Magnesium Hydroxide (Milk Of Magnesia) 30 ml PO Q12H PRN PRN Reason: Constipation Ondansetron HCl (Zofran Odt) 4 mg PO Q6H PRN PRN Reason: Nausea able to take PO Oxycodone/Acetaminophen (Percocet 325-5 Mg) 2 tab PO Q4H PRN PRN Reason: Pain (moderate 4-6) Senna/Docusate Sodium (Senna Plus) 1 tab PO BID PRN PRN Reason: Constipation Sodium Chloride (Saline Flush) 10 ml FLUSH ASDIRECTED PRN PRN Reason: Keep Vein Open Vancomycin HCl (Vancomycin) 0 gm IV .PHARMACY TO DOSE FIDEL Assessment/Plan Comment:: At this time the patient is going to be admitted to [facility] for possible wound infection. We will monitor the redness and warmth. We will start him on Vanco. We will consult hospitalist and see how he does over the next few days. I will encourage PT/OT 3 times a day for strengthening.
[2017-02-16] MEDS ORDERED: Vancomycin 1 GM SDV IV SCH ×2 (15:00→17:15)
--- NOTE | 2017-02-16 15:25 | PCM.CONS ---
H&P History of Present Illness - General Date of Service: 02/16/17 Admit Problem/Dx: Admission Diagnosis/Problem Admission Diagnosis/Problem Knee joint effusion Source of Information: Patient, Family, Provider History Limitations: Reports: No Limitations - History of Present Illness Initial Comments - Free Text/Narative: Tigre presents to the emergency room today with redness and swelling of the left knee. He recently had a left total knee arthroplasty. Over the past 24 hours he has had progressive swelling as well as redness of the medial and posterior thigh on the left side. Does not have significant pain in the area but thought the area of redness felt warm compared to the rest of his leg. He has not had any fevers. No nausea or abdominal pain. He was evaluated at the urgent care in [place] and they sent him to this emergency room for further evaluation since he had surgery here a few days ago. He currently reports moderate achy pain in the left knee. He is able to wiggle his toes. He does not have any paresthesias. Workup in the emergency room has revealed leukocytosis with a white blood cell count of 14,000. Left leg appears to have more bruising medially and posteriorly. He does not have significant erythema or induration or warmth surrounding the surgical site. He'll be admitted with empiric antibiotics for close monitoring to rule out developing cellulitis. Left Leg Pain Score (Numeric/FACES): 4 - Related Data Allergies/Adverse Reactions: Allergies Allergy/AdvReac Type Severity Reaction Status Date / Time No Known Allergies Allergy Verified 02/16/17 13:57 Home Medications: Home Meds Ketorolac [Toradol] 10 mg PO TID PRN 01/03/17 [History] Lidocaine 5% [Lidoderm 5%] 1 patch TOP DAILY 02/12/17 [History] Acetaminophen/oxyCODONE [Percocet 325-5 MG] 1 tab PO Q4H PRN #90 tablet [Rx] Aspirin [Ecotrin] 325 mg PO DAILY #30 tab.ec 02/15/17 [Rx] Past Medical History HEENT History: Reports: Impaired Vision Respiratory History: Reports: SOB Musculoskeletal History: Reports: Other (See Below) Other Musculoskeletal History: left knee pain - Past Surgical History Musculoskeletal Surgical History: Reports: Knee Replacement Social & Family History - Family History Endocrine/Metabolic: Reports: Diabetes, type II - Tobacco Use Smoking Status *Q: Current Every Day Smoker Years of Tobacco use: 40 Packs/Tins Daily: 1 Second Hand Smoke Exposure: No - Caffeine Use Caffeine Use: Reports: None - Alcohol Use Days Per Week of Alcohol Use: 3 Number of Drinks Per Day: 1 Total Drinks Per Week: 3 - Recreational Drug Use Recreational Drug Use: No H&P Review of Systems - Review of Systems: Review Of Systems: See Below Free Text/Narrative: A complete 12 point review of systems was obtained. Pertinent positives and negatives are noted in the history of present illness. All other systems were reviewed and were negative except as noted. Exam - Exam Exam: See Below - Vital Signs Vital Signs: Last Vital Signs Temp 36.1 C 02/16/17 13:54 Pulse 79 02/16/17 13:54 Resp 18 02/16/17 13:54 BP 114/69 02/16/17 13:54 Pulse Ox 95 02/16/17 13:54 Weight: 138.6 kg - Exam Quality Assessment: No: Supplemental Oxygen General: Alert, Oriented, Cooperative. No: Mild Distress HEENT: Conjunctiva Clear, Mucosa Moist & Point Place. No: Scleral Icterus Neck: Supple, Trachea Midline Lungs: Clear to Auscultation, Normal Respiratory Effort. No: Wheezing Cardiovascular: Regular Rate, Regular Rhythm GI/Abdominal Exam: Soft, No Distention Back Exam: Normal Inspection, Full Range of Motion Extremities: No Pedal Edema, Joint Swelling (Mild swelling around the left knee) , Other (Purplish bruising left medial thigh as well as left posterior thigh with mild warmth) Skin: Warm, Dry, Ecchymosis (As described above), Incision (Left knee incision is healing well. Staple line is intact). No: Rash Neuro Extensive - Mental Status: Alert, Oriented x3, Nl Response to Commands Neuro Extensive - Motor, Sensory, Reflexes: CN II-XII Intact. No: Abnormal Reflexes, Abnormal Motor, Tremor Psychiatric: Alert, Normal Affect - Patient Data Lab Results Last 24 hrs: Laboratory Results - last 24 hr 02/16/17 02/16/17 02/16/17 Range/Units 14:10 14:10 14:20 WBC 14.2 H (4.5-11.0) K/uL RBC 3.78 L (4.30-5.90) M/uL Hgb 11.3 L (12.0-15.0) g/dL Hct 33.4 L (40.0-54.0) % MCV 88 (80-98) fL MCH 30 (27-31) pg MCHC 34 (32-36) % Plt Count 176 (150-400) K/uL Neut % (Auto) 61 (36-66) % Lymph % (Auto) 21 L (24-44) % [place] % (Auto) 17 H (2-6) % Eos % (Auto) 2 (2-4) % Baso % (Auto) 0 (0-1) % Sodium 137 L (140-148) mmol/L Potassium 3.9 (3.6-5.2) mmol/L Chloride 103 (100-108) mmol/L Carbon Dioxide 28 (21-32) mmol/L Anion Gap 9.9 (5.0-14.0) mmol/L BUN 13 (7-18) mg/dL Creatinine 1.1 (0.8-1.3) mg/dL Est Cr Clr Drug Dosing 82.30 mL/min Estimated GFR (MDRD) > 60 (>60) Glucose 116 H (74-106) mg/dL Calcium 8.6 (8.5-10.1) mg/dL Total Bilirubin 0.8 D (0.2-1.0) mg/dL AST 27 (15-37) U/L ALT 35 (12-78) U/L Alkaline Phosphatase 50 (46-116) U/L Total Protein 7.1 (6.4-8.2) g/dL Albumin 3.0 L (3.4-5.0) g/dL Globulin 4.1 H (2.3-3.5) g/dL Albumin/Globulin Ratio 0.7 L (1.2-2.2) Urine Color [place] Urine Appearance Clear Urine pH 6.0 (4.5-8.0) Ur Specific [place] 1.015 (1.008-1.030) Urine Protein Trace (NEGATIVE) mg/dL Urine Glucose (UA) Normal (NEGATIVE) mg/dL Urine Ketones Negative (NEGATIVE) mg/dL Urine Occult Blood Moderate (NEGATIVE) Urine Nitrite Negative (NEGAITVE) Urine Bilirubin Negative (NEGATIVE) Urine Urobilinogen 4 (NORMAL) mg/dL Ur Leukocyte Esterase Negative (NEGATIVE) Urine RBC 0-5 (0-5) Urine WBC Not seen (0-5) Ur Epithelial Cells Rare Amorphous Sediment Not seen Urine Bacteria Few Urine Mucus Moderate Result Diagrams: 02/16/17 14:10 02/16/17 14:10 Consult PN Assessment/Plan POD#: 3 Procedures: Procedures X-RAY EXAM KNEE 4 OR MORE (01/07/17) Problem List Initiated/Reviewed/Updated: Yes Plan: ASSESSMENT AND PLAN - Left knee swelling and redness - suspect postoperative inflammation and possibly bleeding/bruising rather than cellulitis at this time. There is no induration or warmth around the surgical incision. It does not have a fever. There is no evidence for DVT. -Empiric antibiotics with close monitoring -Ice every 4 hours -Pain control -Blood cultures if he spikes a fever Tobacco dependence - long smoking history. Did not need replacement therapy the last time he was in the hospital. -Encourage cessation Type 2 diabetes mellitus, controlled - not currently taking any medications. Plan to check sugars twice daily and institute sliding scale insulin if needed Girish Giron M.D. Requesting Provider: Shaila Landaverde Date Consult Requested: 02/16/17 Reason for Consult: Left leg redness and swelling Patient History Reviewed: Yes Admission H&P Reviewed: Yes Notified Requestor: Yes Time Spent (in minutes): 40
[2017-02-16] MEDS ORDERED: Vancomycin 1 GM SDV ONE (17:28)
[2017-02-16] MEDS ORDERED: Sodium Chloride 0.9% 250 ML ONE (17:29)
[2017-02-16] MEDS ORDERED: Vancomycin 2 GM in Sodium Chloride 0.9% 500 ML IV ONE (18:00)
[2017-02-16] MEDS: Acetaminophen/oxyCODONE 325-5 MG Tab PO PRN (22:25)
[2017-02-17] MEDS: Acetaminophen/oxyCODONE 325-5 MG Tab PO PRN ×3 (05:40→20:57)
[2017-02-17] MEDS ORDERED: Aspirin 325 MG Tab.EC PO SCH (09:00)
[2017-02-17] MEDS: Aspirin 325 MG Tab.EC PO SCH (09:06)
[2017-02-17] MEDS ORDERED: Bisacodyl 5 MG Tab PO PRN (09:45)
--- NOTE | 2017-02-17 12:46 | PCM.PN ---
- General Info Date of Service: 02/17/17 Admission Dx/Problem (Free Text): patient doing very well today. He has much improvement. Patient notes that he has less swelling. He has been up and ambulating and sitting in a chair most the day. He has minimal pain at this time. Functional Status: Reports: Pain Controlled, Tolerating Diet, Ambulating, Urinating - Patient Data Vitals - Most Recent: Last Vital Signs Temp 37.5 C 02/17/17 11:00 Pulse 81 02/17/17 11:00 Resp 20 02/17/17 11:00 BP 138/64 02/17/17 11:00 Pulse Ox 93 L 02/17/17 11:00 Weight - Most Recent: 316 lb 4.8 oz I&O - Last 24 Hours: Intake & Output 02/16/17 02/17/17 02/17/17 22:59 06:59 14:59 Intake Total 500 2108 250 Output Total 525 500 Balance -25 1608 250 Lab Results Last 24 Hours: Laboratory Results - last 24 hr 02/17/17 02/17/17 Range/Units 04:59 04:59 WBC 12.8 H (4.5-11.0) K/uL RBC 3.48 L (4.30-5.90) M/uL Hgb 10.4 L (12.0-15.0) g/dL Hct 31.1 L (40.0-54.0) % MCV 89 (80-98) fL MCH 30 (27-31) pg MCHC 33 (32-36) % Plt Count 177 (150-400) K/uL Neut % (Auto) 58 (36-66) % Lymph % (Auto) 22 L (24-44) % [place] % (Auto) 17 H (2-6) % Eos % (Auto) 2 (2-4) % Baso % (Auto) 0 (0-1) % Sodium 141 (140-148) mmol/L Potassium 3.8 (3.6-5.2) mmol/L Chloride 105 (100-108) mmol/L Carbon Dioxide 28 (21-32) mmol/L Anion Gap 8.3 (5.0-14.0) mmol/L BUN 14 (7-18) mg/dL Creatinine 1.0 (0.8-1.3) mg/dL Est Cr Clr Drug Dosing 88.54 mL/min Estimated GFR (MDRD) > 60 (>60) Glucose 114 H (74-106) mg/dL Calcium 8.1 L (8.5-10.1) mg/dL Med Orders - Current: Current Medications Albuterol (Proventil Neb Soln) 2.5 mg NEB Q4H PRN PRN Reason: Shortness Of Breath/wheezing Albuterol/Ipratropium (Duoneb 3.0-0.5 Mg/3 Ml) 3 ml NEB QID PRN PRN Reason: Shortness Of Breath/wheezing Aspirin (Ecotrin) 325 mg PO DAILY [facility] Last Admin: 02/17/17 09:06 Dose: 325 mg Bisacodyl (Dulcolax) 5 mg PO DAILY PRN PRN Reason: Constipation Bisacodyl (Dulcolax) 10 mg PO DAILY PRN PRN Reason: Constipation Docusate Sodium (Colace) 100 mg PO BID PRN PRN Reason: Constipation Last Admin: 02/17/17 01:02 Dose: 100 mg Vancomycin HCl 2 gm/ Sodium (Chloride) 250 mls @ 125 mls/hr IV Q12H [facility] Last Admin: 02/17/17 09:03 Dose: 125 mls/hr Magnesium Hydroxide (Milk Of Magnesia) 30 ml PO Q12H PRN PRN Reason: Constipation Melatonin (Melatonin) 9 mg PO BEDTIME [facility] Ondansetron HCl (Zofran Odt) 4 mg PO Q6H PRN PRN Reason: Nausea able to take PO Oxycodone/Acetaminophen (Percocet 325-5 Mg) 2 tab PO Q4H PRN PRN Reason: Pain (moderate 4-6) Last Admin: 02/17/17 12:38 Dose: 2 tab Senna/Docusate Sodium (Senna Plus) 1 tab PO BID PRN PRN Reason: Constipation Sodium Chloride (Saline Flush) 10 ml FLUSH ASDIRECTED PRN PRN Reason: Keep Vein Open Discontinued Medications Lactated Ringer's (Ringers, Lactated) 1,000 mls @ 125 mls/hr IV ASDIRECTED [facility] Last Admin: 02/17/17 02:56 Dose: 125 mls/hr Vancomycin HCl 2 gm/ Sodium (Chloride) 500 mls @ 250 mls/hr IV ONETIME ONE Stop: 02/16/17 19:59 Last Admin: 02/16/17 18:09 Dose: 250 mls/hr Sodium Chloride (Normal Saline) Confirm Administered Dose 250 mls @ as directed .ROUTE .STK-MED ONE Stop: 02/16/17 17:30 Last Admin: 02/16/17 18:09 Dose: Not Given Vancomycin HCl (Vancomycin) 0 gm IV .PHARMACY TO DOSE [facility] Last Admin: 02/16/17 18:09 Dose: 2 gm Vancomycin HCl (Vancomycin) 0 gm IV .PHARMACY TO DOSE [facility] Vancomycin HCl (Vancomycin) Confirm Administered Dose 2 gm .ROUTE .STK-MED ONE Stop: 02/16/17 17:29 Last Admin: 02/17/17 07:48 Dose: Not Given - Exam General: Alert, Oriented Back Exam: Normal Inspection Extremities: Normal Inspection, Normal Capillary Refill, Pedal Edema, Joint Swelling, Limited Range of Motion Peripheral Pulses: 2+: Dorsalis Pedis (L), Dorsalis Pedis (R) Skin: Warm, Dry (yeah yeah he's findings there is no infection), Intact Wound/Incisions: Healing Well, Dressing Dry and Intact Neurological: No New Focal Deficit Psy/Mental Status: Alert - Problem List Review Problem List Initiated/Reviewed/Updated: Yes - My Orders Last 24 Hours: My Active Orders 02/17/17 08:00 Vancomycin 2 gm Sodium Chloride 0.9% [Normal Saline] 250 ml IV Q12H 02/17/17 09:00 Aspirin [Ecotrin] 325 mg PO DAILY - Plan Plan:: patient is doing well at this time. He has much improvement with his swelling. I do believe that there is no infection present at this time. I do believe that it was just a postop inflammatory reaction. There is no redness or warmth. I did educate the patient that he needs to keep it straight when in bed and elevated by the heel. He also needs to keep it at least 90 when sitting up in a chair. He needs ice often. Keep up with oral pain medication. I do want him to take stool softeners as needed. We'll try to see if we can find him fdc stay locally tomorrow.
--- NOTE | 2017-02-17 14:01 | PCM.CONSN ---
- General Info Date of Service: 02/17/17 Functional Status: Reports: Pain Controlled, Tolerating Diet, Ambulating - Review of Systems General: Denies: Fever Musculoskeletal: Reports: Leg Pain Systems Review Comment:: No acute events overnight. No fevers. Leg feels much better today. Bruising appears better today. No significant warmth. No abnormalities around the surgical site. No complaints of shortness of breath. - Patient Data Vitals - Most Recent: Last Vital Signs Temp 37.5 C 02/17/17 11:00 Pulse 81 02/17/17 11:00 Resp 20 02/17/17 11:00 BP 138/64 02/17/17 11:00 Pulse Ox 93 L 02/17/17 11:00 Weight - Most Recent: 143.471 kg I&O - Last 24 Hours: Intake & Output 02/16/17 02/17/17 02/17/17 22:59 06:59 14:59 Intake Total 500 2108 250 Output Total 525 500 Balance -25 1608 250 Lab Results Last 24 Hours: Laboratory Results - last 24 hr 02/17/17 02/17/17 Range/Units 04:59 04:59 WBC 12.8 H (4.5-11.0) K/uL RBC 3.48 L (4.30-5.90) M/uL Hgb 10.4 L (12.0-15.0) g/dL Hct 31.1 L (40.0-54.0) % MCV 89 (80-98) fL MCH 30 (27-31) pg MCHC 33 (32-36) % Plt Count 177 (150-400) K/uL Neut % (Auto) 58 (36-66) % Lymph % (Auto) 22 L (24-44) % [place] % (Auto) 17 H (2-6) % Eos % (Auto) 2 (2-4) % Baso % (Auto) 0 (0-1) % Sodium 141 (140-148) mmol/L Potassium 3.8 (3.6-5.2) mmol/L Chloride 105 (100-108) mmol/L Carbon Dioxide 28 (21-32) mmol/L Anion Gap 8.3 (5.0-14.0) mmol/L BUN 14 (7-18) mg/dL Creatinine 1.0 (0.8-1.3) mg/dL Est Cr Clr Drug Dosing 88.54 mL/min Estimated GFR (MDRD) > 60 (>60) Glucose 114 H (74-106) mg/dL Calcium 8.1 L (8.5-10.1) mg/dL Med Orders - Current: Current Medications Albuterol (Proventil Neb Soln) 2.5 mg NEB Q4H PRN PRN Reason: Shortness Of Breath/wheezing Albuterol/Ipratropium (Duoneb 3.0-0.5 Mg/3 Ml) 3 ml NEB QID PRN PRN Reason: Shortness Of Breath/wheezing Aspirin (Ecotrin) 325 mg PO DAILY [facility] Last Admin: 02/17/17 09:06 Dose: 325 mg Bisacodyl (Dulcolax) 5 mg PO DAILY PRN PRN Reason: Constipation Bisacodyl (Dulcolax) 10 mg PO DAILY PRN PRN Reason: Constipation Docusate Sodium (Colace) 100 mg PO BID PRN PRN Reason: Constipation Last Admin: 02/17/17 01:02 Dose: 100 mg Vancomycin HCl 2 gm/ Sodium (Chloride) 250 mls @ 125 mls/hr IV Q12H [facility] Last Admin: 02/17/17 09:03 Dose: 125 mls/hr Magnesium Hydroxide (Milk Of Magnesia) 30 ml PO Q12H PRN PRN Reason: Constipation Melatonin (Melatonin) 9 mg PO BEDTIME [facility] Ondansetron HCl (Zofran Odt) 4 mg PO Q6H PRN PRN Reason: Nausea able to take PO Oxycodone/Acetaminophen (Percocet 325-5 Mg) 2 tab PO Q4H PRN PRN Reason: Pain (moderate 4-6) Last Admin: 02/17/17 12:38 Dose: 2 tab Senna/Docusate Sodium (Senna Plus) 1 tab PO BID PRN PRN Reason: Constipation Sodium Chloride (Saline Flush) 10 ml FLUSH ASDIRECTED PRN PRN Reason: Keep Vein Open Discontinued Medications Lactated Ringer's (Ringers, Lactated) 1,000 mls @ 125 mls/hr IV ASDIRECTED [facility] Last Admin: 02/17/17 02:56 Dose: 125 mls/hr Vancomycin HCl 2 gm/ Sodium (Chloride) 500 mls @ 250 mls/hr IV ONETIME ONE Stop: 02/16/17 19:59 Last Admin: 02/16/17 18:09 Dose: 250 mls/hr Sodium Chloride (Normal Saline) Confirm Administered Dose 250 mls @ as directed .ROUTE .STK-MED ONE Stop: 02/16/17 17:30 Last Admin: 02/16/17 18:09 Dose: Not Given Vancomycin HCl (Vancomycin) 0 gm IV .PHARMACY TO DOSE [facility] Last Admin: 02/16/17 18:09 Dose: 2 gm Vancomycin HCl (Vancomycin) 0 gm IV .PHARMACY TO DOSE [facility] Vancomycin HCl (Vancomycin) Confirm Administered Dose 2 gm .ROUTE .STK-MED ONE Stop: 02/16/17 17:29 Last Admin: 02/17/17 07:48 Dose: Not Given - Exam Quality Assessment: No: Supplemental Oxygen General: Alert, Oriented, Cooperative, No Acute Distress Lungs: Normal Respiratory Effort GI/Abdominal Exam: Soft, No Distention Extremities: Pedal Edema (left leg), Joint Swelling (left knee) Skin: Warm, Dry, Ecchymosis (left medial and posterior thigh ) Psy/Mental Status: Alert, Normal Affect Consult PN Assessment/Plan Procedures: Procedures X-RAY EXAM KNEE 4 OR MORE (01/07/17) Problem List Initiated/Reviewed/Updated: Yes My Orders Last 24 Hours: My Active Orders 02/17/17 09:45 Bisacodyl [Dulcolax] 10 mg PO DAILY PRN 02/17/17 09:47 Convert IV to Saline Lock [OM.PC] Routine 02/17/17 17:00 GLUCOSE POC LAB TO COLLECT [POC] BIDAC 02/17/17 21:00 Melatonin 9 mg PO BEDTIME 02/18/17 05:00 BASIC METABOLIC PANEL,BMP [CHEM] Timed CBC W/O DIFF,HEMOGRAM [HEME] Timed (1) 02/18/17 08:00 GLUCOSE POC LAB TO COLLECT [POC] BIDAC 02/18/17 17:00 GLUCOSE POC LAB TO COLLECT [POC] BIDAC 02/19/17 08:00 GLUCOSE POC LAB TO COLLECT [POC] BIDAC 02/19/17 17:00 GLUCOSE POC LAB TO COLLECT [POC] BIDAC 02/20/17 08:00 GLUCOSE POC LAB TO COLLECT [POC] BIDAC 02/20/17 17:00 GLUCOSE POC LAB TO COLLECT [POC] BIDAC 02/21/17 08:00 GLUCOSE POC LAB TO COLLECT [POC] BIDAC 02/21/17 17:00 GLUCOSE POC LAB TO COLLECT [POC] BIDAC 02/22/17 08:00 GLUCOSE POC LAB TO COLLECT [POC] BIDAC 02/22/17 17:00 GLUCOSE POC LAB TO COLLECT [POC] BIDAC 02/23/17 08:00 GLUCOSE POC LAB TO COLLECT [POC] BIDAC 02/23/17 17:00 GLUCOSE POC LAB TO COLLECT [POC] BIDAC 02/24/17 08:00 GLUCOSE POC LAB TO COLLECT [POC] BIDAC 02/24/17 17:00 GLUCOSE POC LAB TO COLLECT [POC] BIDAC 02/25/17 08:00 GLUCOSE POC LAB TO COLLECT [POC] BIDAC 02/25/17 17:00 GLUCOSE POC LAB TO COLLECT [POC] BIDAC 02/26/17 08:00 GLUCOSE POC LAB TO COLLECT [POC] BIDAC 02/26/17 17:00 GLUCOSE POC LAB TO COLLECT [POC] BIDAC 02/27/17 08:00 GLUCOSE POC LAB TO COLLECT [POC] BIDAC Plan: ASSESSMENT AND PLAN - Left knee swelling and redness - suspect postoperative inflammation and hematoma rather than cellulitis at this time. There is no evidence for DVT. Knee looks much better today. No fevers. -Empiric antibiotics with close monitoring, d/c tomorrow if no evidence for infection -Ice every 4 hours -Pain control -Blood cultures if he spikes a fever Tobacco dependence - long smoking history. Did not need replacement therapy the last time he was in the hospital. -Encourage cessation Type 2 diabetes mellitus, controlled - not currently taking any medications. Plan to check sugars twice daily and institute sliding scale insulin if needed Girish Giron M.D.
[2017-02-17] MEDS ORDERED: Melatonin 3 MG Tab PO SCH (21:00)
[2017-02-18] MEDS: Acetaminophen/oxyCODONE 325-5 MG Tab PO PRN ×4 (00:59→16:46)
[2017-02-18] MEDS: Aspirin 325 MG Tab.EC PO SCH (08:45)
--- NOTE | 2017-02-18 08:51 | US ---
VL Duplex Lwr Ext Veins Ltd Lt INDICATION: recent knee surgery increased swelling. FINDINGS: Ultrasound examination of the lower extremity using Doppler and compressive technique demon strates that the common femoral, femoral, and popliteal veins are patent, and negative for thrombus. The calf veins were segmentally visualized and are negative where seen. IMPRESSION: Negative for deep venous thrombosis.
[2017-02-18 15:10] VITALS: BP 142/84
--- NOTE | 2017-02-18 15:16 | PCM.DCSUM1 ---
Discharge Summary - Hospital Course Free Text/Narrative:: Tigre is a pleasant 56-year-old male who is status postop 2 weeks of the left total knee replacement. He is doing very well. There is no infection present. Patient has minimal pain at this time. He is doing well with physical therapy. - Discharge Data Discharge Date: 02/18/17 Discharge Disposition: Home, W Home Health Agency 06 Condition: Good - Patient Instructions Diet: Usual Diet as Tolerated Activity: Apply Ice, As Tolerated Driving: Do Not Drive Showering/Bathing: May Shower Wound/Incision Care: Keep Operative Site/Wound Site Clean and Dry, Change Dressing Daily Notify Provider of: Fever, Increased Pain, Swelling and Redness, Drainage, Nausea and/or Vomiting - Discharge Plan Prescriptions/Med Rec: Acetaminophen/oxyCODONE [Percocet 325-5 MG] 1 tab PO Q4H PRN #90 tablet PRN Reason: Pain Aspirin [Ecotrin] 325 mg PO DAILY #30 tab.ec Home Medications: Home Meds Ketorolac [Toradol] 10 mg PO TID PRN 01/03/17 [History] Lidocaine 5% [Lidoderm 5%] 1 patch TOP DAILY 02/12/17 [History] Acetaminophen/oxyCODONE [Percocet 325-5 MG] 1 tab PO Q4H PRN #90 tablet [Rx] Aspirin [Ecotrin] 325 mg PO DAILY #30 tab.ec 02/15/17 [Rx] Acetaminophen/oxyCODONE [Percocet 325-5 MG] 1 tab PO Q4H PRN #90 tablet [Rx] Aspirin [Ecotrin] 325 mg PO DAILY #30 tab.ec 02/18/17 [Rx] Forms: ED Department Discharge Referrals: Jayesh Escobedo MD [Primary Care Provider] - Shaila Landaverde NP [Nurse Practitioner] - - Discharge Summary/Plan Comment DC Time >30 min.: Yes Discharge Summary/Plan Comment: patient will be discharged home with home health and also physical therapy. He will follow-up with me in 2 weeks time. Patient is continuing to elevate and ice. I did send him home with a prescription of 6 tablets of Percocet due to not being picked up till later in the evening and then another prescription for 90 tablets to fill at [facility] the next day. Patient was also given aspirin 325 one tablet daily. - Patient Data Vitals - Most Recent: Last Vital Signs Temp 36.4 C 02/18/17 15:07 Pulse 83 02/18/17 15:07 Resp 20 02/18/17 15:07 BP 142/84 H 02/18/17 15:07 Pulse Ox 94 L 02/18/17 15:07 Weight - Most Recent: 316 lb 4.8 oz I&O - Last 24 hours: Intake & Output 02/18/17 02/18/17 02/18/17 06:59 14:59 22:59 Intake Total 1000 Balance 1000 Lab Results - Last 24 hrs: Laboratory Results - last 24 hr 02/18/17 02/18/17 Range/Units 05:38 05:39 WBC 12.8 H (4.5-11.0) K/uL RBC 3.53 L (4.30-5.90) M/uL Hgb 10.5 L (12.0-15.0) g/dL Hct 31.7 L (40.0-54.0) % MCV 90 (80-98) fL MCH 30 (27-31) pg MCHC 33 (32-36) % Plt Count 210 (150-400) K/uL Sodium 140 (140-148) mmol/L Potassium 4.0 (3.6-5.2) mmol/L Chloride 105 (100-108) mmol/L Carbon Dioxide 27 (21-32) mmol/L Anion Gap 8.1 (5.0-14.0) mmol/L BUN 11 (7-18) mg/dL Creatinine 1.0 (0.8-1.3) mg/dL Est Cr Clr Drug Dosing 88.54 mL/min Estimated GFR (MDRD) > 60 (>60) Glucose 152 H (74-106) mg/dL Calcium 8.1 L (8.5-10.1) mg/dL Med Orders - Current: Current Medications Albuterol (Proventil Neb Soln) 2.5 mg NEB Q4H PRN PRN Reason: Shortness Of Breath/wheezing Albuterol/Ipratropium (Duoneb 3.0-0.5 Mg/3 Ml) 3 ml NEB QID PRN PRN Reason: Shortness Of Breath/wheezing Aspirin (Ecotrin) 325 mg PO DAILY [facility] Last Admin: 02/18/17 08:45 Dose: 325 mg Bisacodyl (Dulcolax) 5 mg PO DAILY PRN PRN Reason: Constipation Bisacodyl (Dulcolax) 10 mg PO DAILY PRN PRN Reason: Constipation Docusate Sodium (Colace) 100 mg PO BID PRN PRN Reason: Constipation Last Admin: 02/17/17 01:02 Dose: 100 mg Magnesium Hydroxide (Milk Of Magnesia) 30 ml PO Q12H PRN PRN Reason: Constipation Melatonin (Melatonin) 9 mg PO BEDTIME [facility] Last Admin: 02/17/17 20:59 Dose: 9 mg Ondansetron HCl (Zofran Odt) 4 mg PO Q6H PRN PRN Reason: Nausea able to take PO Oxycodone/Acetaminophen (Percocet 325-5 Mg) 2 tab PO Q4H PRN PRN Reason: Pain (moderate 4-6) Last Admin: 02/18/17 10:16 Dose: 1 tab Senna/Docusate Sodium (Senna Plus) 1 tab PO BID PRN PRN Reason: Constipation Sodium Chloride (Saline Flush) 10 ml FLUSH ASDIRECTED PRN PRN Reason: Keep Vein Open Discontinued Medications Lactated Ringer's (Ringers, Lactated) 1,000 mls @ 125 mls/hr IV ASDIRECTED [facility] Last Admin: 02/17/17 02:56 Dose: 125 mls/hr Vancomycin HCl 2 gm/ Sodium (Chloride) 500 mls @ 250 mls/hr IV ONETIME ONE Stop: 02/16/17 19:59 Last Admin: 02/16/17 18:09 Dose: 250 mls/hr Sodium Chloride (Normal Saline) Confirm Administered Dose 250 mls @ as directed .ROUTE .STK-MED ONE Stop: 02/16/17 17:30 Last Admin: 02/16/17 18:09 Dose: Not Given Vancomycin HCl 2 gm/ Sodium (Chloride) 250 mls @ 125 mls/hr IV Q12H [facility] Last Admin: 02/18/17 08:45 Dose: 125 mls/hr Vancomycin HCl (Vancomycin) 0 gm IV .PHARMACY TO DOSE [facility] Vancomycin HCl (Vancomycin) 0 gm IV .PHARMACY TO DOSE [facility] Vancomycin HCl (Vancomycin) Confirm Administered Dose 2 gm .ROUTE .STK-MED ONE Stop: 02/16/17 17:29 Last Admin: 02/17/17 07:48 Dose: Not Given - Exam General: Reports: Alert, Oriented Back Exam: Reports: Normal Inspection, Full Range of Motion Extremities: Normal Inspection, Normal Range of Motion, Normal Capillary Refill , Pedal Edema Skin: Reports: Warm, Dry, Intact Wound/Incisions: Reports: Healing Well, Dressing Dry and Intact, No Drainage Neurological: Reports: No New Focal Deficit Psy/Mental Status: Reports: Alert *Q Meaningful Use (DIS) - VTE *Q VTE Criteria *Q: - Stroke *Q Stroke Criteria *Q: - AMI *Q AMI Criteria *Q:
== END 2017-02-18 17:00 | disposition home health service (06) | DRG 566 ==
LOC: JP.ED 13:14 → JP.MS 14:20
PROVIDERS: ADMIT Orthopaedic Surgery; ATTEND Orthopaedic Surgery
DX: M25.462 Effusion, left knee (principal); Z96.652 Presence of left artificial knee joint; E11.9 Type 2 diabetes mellitus without complications; F17.210 Nicotine dependence, cigarettes, uncomplicated; H54.7 Unspecified visual loss; Z79.82 Long term (current) use of aspirin; Z98.890 Other specified postprocedural states
CPT/HCPCS: 36415; 80048; 80053; 81001; 82962; 85025; 85027; 93971-26-LT; 93971-LT; 97110-GP; 97161-GP; 97165-GO; 97530-GP; 97535-GP; 99024; 99285-25; A9270-GY; J3370; J7040; J7050; J7120

== ENCOUNTER 2021-01-07 22:37 | Inpatient (IN) | payer OTHER ==
[2021-01-07] MEDS ORDERED: Sodium Chloride 0.9% 10 ML Syringe FLUSH PRN (23:10)
[2021-01-07] MEDS ORDERED: Acetaminophen 325 MG Tab PO PRN (23:10)
[2021-01-07] MEDS ORDERED: Glucose Gel 15 GM in 37.5 GM Tube PO PRN (23:10)
[2021-01-07] MEDS ORDERED: 50% Dextrose in Water 50 ML Syringe IV PRN (23:10)
[2021-01-07] MEDS ORDERED: Polyethylene Glycol 3350 Powder 17 GM Packet PO PRN (23:10)
[2021-01-07] MEDS ORDERED: Ondansetron 4 MG/2 ML SDV IV PRN (23:10)
[2021-01-07] MEDS ORDERED: Enoxaparin 40 MG/0.4 ML Syringe SUBCUT SCH (23:15)
[2021-01-07] MEDS ORDERED: Diltiazem 100 MG in Sodium Chloride 0.9% 100 ML IV SCH (23:15)
--- NOTE | 2021-01-07 23:22 | PCM.HP.2 ---
H&P History of Present Illness - General Date of Service: 01/07/21 Admit Problem/Dx: Admission Diagnosis/Problem Admission Diagnosis/Problem Atrial fibrillation Source of Information: Patient, Old Records History Limitations: Reports: No Limitations - History of Present Illness Initial Comments - Free Text/Narative: Mr. Rico is a 60-year-old gentleman who was admitted as a direct admission from the [place] emergency department with palpitations and lightheadedness secondary to atrial fibrillation with rapid ventricular response. He has had a history of paroxysmal atrial fibrillation over the past 15 months. He estimates that in the past 5 months he has had 8 episodes. Typically he is admitted to the hospital receives IV diltiazem and spontaneously converts to sinus rhythm. He has been seen by cardiology and has had an echocardiogram. Apparently he also had a stress test that was somewhat abnormal and he is scheduled for an angiogram. They have discussed anticoagulation and he was told by the segment block layer that he did not require it at the present time. EP study is scheduled for the first part of February. He is on diltiazem for rate control, currently on no antidysrhythmic therapy. Symptoms started tonight at approximately 5:00 in the evening, he did take a 30 mg diltiazem tablet at that time. Because of persistent symptoms he presented to the emergency department in [place] and was given a second 30 mg dose of diltiazem orally. They were unable to get an IV started and called here to request transfer. Patient denies any symptoms of chest pain or pressure occurring through the evening associated with his atrial fibrillation. - Related Data Allergies/Adverse Reactions: Allergies Allergy/AdvReac Type Severity Reaction Status Date / Time No Known Allergies Allergy Verified 01/07/21 22:40 Home Medications: Home Meds Aspirin [Adult Low Dose Aspirin EC] 81 mg PO DAILY 01/07/21 [History] Diltiazem HCl [Diltiazem 24Hr ER] 120 mg PO DAILY 01/07/21 [History] Past Medical History HEENT History: Reports: Impaired Vision Respiratory History: Reports: SOB Musculoskeletal History: Reports: Other (See Below) Other Musculoskeletal History: s/p LTKA - Past Surgical History Musculoskeletal Surgical History: Reports: Knee Replacement Social & Family History - Family History Endocrine/Metabolic: Reports: Diabetes, type II - Caffeine Use Caffeine Use: Reports: None H&P Review of Systems - Review of Systems: Review Of Systems: See Below General: Reports: No Symptoms HEENT: Reports: No Symptoms Pulmonary: Reports: No Symptoms Cardiovascular: Reports: Palpitations, Lightheadedness. Denies: Chest Pain, Dyspnea on Exertion, Orthopnea, PND, Edema Gastrointestinal: Reports: No Symptoms Genitourinary: Reports: No Symptoms Musculoskeletal: Reports: No Symptoms Skin: Reports: No Symptoms Psychiatric: Reports: No Symptoms Neurological: Reports: No Symptoms Hematologic/Lymphatic: Reports: No Symptoms Immunologic: Reports: No Symptoms Exam - Exam Exam: See Below - Vital Signs Vital Signs: Last Vital Signs Temp 96.0 F L 01/07/21 22:40 Pulse Resp 16 01/07/21 22:40 BP 120/86 01/07/21 22:40 Pulse Ox 97 01/07/21 22:40 Weight: 295 lb - Exam Quality Assessment: DVT Prophylaxis General: Alert, Oriented, Cooperative, Mild Distress HEENT: Conjunctiva Clear, Hearing Intact, Mucosa Moist & [place], Normal Nasal Septum, Posterior Pharynx Clear, Pupils Equal Neck: Supple, Trachea Midline, +2 Carotid Pulse wo Bruit Lungs: Clear to Auscultation, Normal Respiratory Effort Cardiovascular: Normal S1, Normal S2, Irregular Rhythm, Tachycardia. No: Systolic Murmur, Diastolic Murmur GI/Abdominal Exam: Soft, Non-Tender, No Organomegaly, No Distention Back Exam: Normal Inspection, Full Range of Motion Extremities: Non-Tender, No Pedal Edema Skin: Warm, Dry, Intact Neurological: Cranial Nerves Intact, Strength Equal Bilateral, Normal Speech, Normal Tone, Sensation Intact. No: Focal Deficit Neuro Extensive - Mental Status: Alert, Oriented x3, Normal Mood/Affect, Normal Cognition, Memory Intact Sepsis Event Note - Focused Exam Vital Signs: Vital Signs Temp Resp BP Pulse Ox 01/07/21 22:40 96.0 F L 16 120/86 97 *Q Meaningful Use (ADM) - VTE Risk Assess *Q Each Risk Factor Represents 1 Point: Obesity ( BMI > 25 kg/m2) Total Score 1 Point Risk Factors: 1 Each Risk Factor Represents 2 Points: Age 60 - 74 Years Total Score 2 Point Risk Factors: 2 Each Risk Factor Represents 3 Points: None Total Score 3 Point Risk Factors: 0 Each Risk Factor Represents 5 Points: None Total Score 5 Point Risk Factors: 0 Venous Thromboembolism Risk Factor Score *Q: 3 Problem List Initiated/Reviewed/Updated: Yes Orders Last 24hrs: Active Orders 24 hr Category Date Time Status Patient Status [ADT] Routine ADT 01/07/21 23:10 Ordered Ambulate [RC] QID Care 01/07/21 23:10 Ordered Cardiac Monitoring [RC] .As Directed Care 01/07/21 23:11 Ordered Communication Order [RC] STAT Care 01/07/21 23:10 Ordered Diabetes Education [RC] Click to Edit Care 01/07/21 23:10 Ordered Height and Weight [RC] DAILY Care 01/07/21 23:10 Ordered Intake and Output [RC] QSHIFT Care 01/07/21 23:10 Ordered Notify Provider Vital Signs [RC] ASDIRECTED Care 01/07/21 23:10 Ordered Notify Provider [RC] PRN Care 01/07/21 23:10 Ordered Oxygen Therapy [RC] PRN Care 01/07/21 23:10 Ordered Peripheral IV Care [RC] . DIRECTED Care 01/07/21 23:13 Ordered Up to Chair [RC] QID Care 01/07/21 23:10 Ordered VTE/DVT Education [RC] Per Unit Routine Care 01/07/21 23:10 Ordered Vital Signs [RC] Q4H Care 01/07/21 23:10 Ordered Regular Diet [DIET] Diet 01/07/21 Dinner Ordered GLUCOSE POC LAB TO COLLECT JPM [POC] QIDACANDBED Lab 01/08/21 07:30 Ordered GLUCOSE POC LAB TO COLLECT JPM [POC] QIDACANDBED Lab 01/08/21 11:30 Ordered GLUCOSE POC LAB TO COLLECT JPM [POC] QIDACANDBED Lab 01/08/21 16:30 Ordered GLUCOSE POC LAB TO COLLECT JPM [POC] QIDACANDBED Lab 01/08/21 21:00 Ordered GLUCOSE POC LAB TO COLLECT JPM [POC] QIDACANDBED Lab 01/09/21 07:30 Ordered GLUCOSE POC LAB TO COLLECT JPM [POC] QIDACANDBED Lab 01/09/21 11:30 Ordered GLUCOSE POC LAB TO COLLECT JPM [POC] QIDACANDBED Lab 01/09/21 16:30 Ordered GLUCOSE POC LAB TO COLLECT JPM [POC] QIDACANDBED Lab 01/09/21 21:00 Ordered GLUCOSE POC LAB TO COLLECT JPM [POC] QIDACANDBED Lab 01/10/21 07:30 Ordered GLUCOSE POC LAB TO COLLECT JPM [POC] QIDACANDBED Lab 01/10/21 11:30 Ordered GLUCOSE POC LAB TO COLLECT JPM [POC] QIDACANDBED Lab 01/10/21 16:30 Ordered GLUCOSE POC LAB TO COLLECT JPM [POC] QIDACANDBED Lab 01/10/21 21:00 Ordered GLUCOSE POC LAB TO COLLECT JPM [POC] QIDACANDBED Lab 01/11/21 07:30 Ordered GLUCOSE POC LAB TO COLLECT JPM [POC] QIDACANDBED Lab 01/11/21 11:30 Ordered GLUCOSE POC LAB TO COLLECT JPM [POC] QIDACANDBED Lab 01/11/21 16:30 Ordered GLUCOSE POC LAB TO COLLECT JPM [POC] QIDACANDBED Lab 01/11/21 21:00 Ordered GLUCOSE POC LAB TO COLLECT JPM [POC] QIDACANDBED Lab 01/12/21 07:30 Ordered GLUCOSE POC LAB TO COLLECT JPM [POC] QIDACANDBED Lab 01/12/21 11:30 Ordered GLUCOSE POC LAB TO COLLECT JPM [POC] QIDACANDBED Lab 01/12/21 16:30 Ordered GLUCOSE POC LAB TO COLLECT JPM [POC] QIDACANDBED Lab 01/12/21 21:00 Ordered Acetaminophen [TylenoL] Med 01/07/21 23:10 Ordered 650 mg PO Q4H PRN Aspirin [Halfprin] Med 01/08/21 09:00 Ordered 81 mg PO DAILY Dextrose 50% in Water Med 01/07/21 23:10 Ordered 50 ml IV ONETIME PRN Dextrose [Glutose 15] Med 01/07/21 23:10 Ordered 15 gm PO ONETIME PRN Diltiazem 100 MG in Normal Saline Adv @ 5 MG/HR(100ml) Med 01/07/21 23:15 Ordered Diltiazem [Cardizem] 100 mg Sodium Chloride 0.9% [Normal Saline] 100 ml IV TITRATE Diltiazem [Cardizem CD] Med 01/08/21 09:00 Ordered 120 mg PO DAILY Enoxaparin [Lovenox] Med 01/07/21 23:15 Ordered 40 mg SUBCUT DAILY Insulin Lispro [HumaLOG] Med 01/08/21 07:00 Ordered See Protocol SUBCUT QIDACANDBED Ondansetron [Zofran] Med 01/07/21 23:10 Ordered 4 mg IV Q4H PRN Sodium Chloride 0.9% [Saline Flush] Med 01/07/21 23:10 Ordered 10 ml FLUSH ASDIRECTED PRN polyethylene glycoL 3350 [MiraLAX] Med 01/07/21 23:10 Ordered 17 gm PO DAILY PRN Peripheral IV Insertion Adult [OM.PC] Routine Oth 01/07/21 23:10 Ordered Resuscitation Status Routine Resus Stat 01/07/21 23:10 Ordered Assessment/Plan Comment:: ASSESSMENT AND PLAN ATRIAL FIBRILLATION WITH RAPID VENTRICULAR RESPONSE-onset of symptoms at approximately 5 PM this evening. He has received a total of 60 mg of short acting diltiazem orally with some improvement in his rate control. He currently is on no anticoagulation and has been followed by cardiology. Plan is for EP study first part of February. Plan is also to proceed with angiography for evaluation of possible coronary artery disease. He denies any symptoms of chest pain this evening associated with the atrial fibrillation. Troponin obtained in [place] was within normal range. -IV diltiazem continuous infusion -Cardiac monitoring TYPE 2 DIABETES MELLITUS-on no active medication -4 times daily glucometers -Low-dose sliding scale Humalog MAINTENANCE ISSUES -DVT prophylaxis; Lovenox 40 mg subcu daily -GI prophylaxis; not indicated -Medeiros catheter; not indicated -Nutrition; consistent carb diet -Nicotine dependence; not required CODE STATUS-FULL CODE ADMISSION STATUS-patient will be admitted to inpatient status, expect at least a 2 night hospital stay for evaluation and management of problems as outlined above. At the time of this admission I do not reasonably expected evaluation and management of this problem will require more than a 96 hour hospital stay. DISPOSITION-anticipate discharge to home after the hospital stay. - Mortality Measure Prognosis:: Good
[2021-01-08] MEDS ORDERED: Insulin Lispro 100 Unit/ML 3 ML KwikPen SUBCUT SCH (07:00)
--- NOTE | 2021-01-08 08:59 | PCM.DCSUM1 ---
Discharge Summary - Hospital Course Brief History: Mr. Rico is a 60-year-old gentleman who was admitted as a direct admission from [place] with lightheadedness and palpitations secondary to atrial fibrillation with rapid ventricular response. - Discharge Data Discharge Date: 01/08/21 Discharge Disposition: Home, Self-Care 01 Condition: Good - Referral to Home Health Primary Care Physician: PCP None - Discharge Diagnosis/Problem(s) (1) Atrial fibrillation with rapid ventricular response SNOMED Code(s): 703730050211886 ICD Code: I48.91 - UNSPECIFIED ATRIAL FIBRILLATION Status: Acute Current Visit: Yes (2) Diabetes mellitus type II, controlled SNOMED Code(s): 97553421, 462466704 ICD Code: E11.9 - TYPE 2 DIABETES MELLITUS WITHOUT COMPLICATIONS Status: Chronic Current Visit: No Qualifiers: Diabetes mellitus termite helper insulin use: without mcc use Diabetes mellitus complication status: without complication Qualified Code(s): E11.9 - Type 2 diabetes mellitus without complications - Patient Summary/Data Hospital Course: Mr. Rico is a 60-year-old gentleman who was admitted as a direct admission from the [place] emergency department with palpitations and lightheadedness secondary to atrial fibrillation with rapid ventricular response. He has had a history of paroxysmal atrial fibrillation over the past 15 months. He estimates that in the past 5 months he has had 8 episodes. Typically he is admitted to the hospital receives IV diltiazem and spontaneously converts to sinus rhythm. He has been seen by cardiology and has had an echocardiogram. Apparently he also had a stress test that was somewhat abnormal and he is scheduled for an angiogram. They have discussed anticoagulation and he was told by the corn picker that he did not require it at the present time. EP study is scheduled for the first part of February. He is on diltiazem for rate control, currently on no antidysrhythmic therapy. Symptoms started tonight at approximately 5:00 in the evening, he did take a 30 mg diltiazem tablet at that time. Because of persistent symptoms he presented to the emergency department in [place] and was given a second 30 mg dose of diltiazem orally. They were unable to get an IV started and called here to request transfer. Patient denies any symptoms of chest pain or pressure occurring through the evening associated with his atrial fibrillation. On admission IV was started and he was started on a continuous infusion of diltiazem. With this intervention later in the toll lineman he did spontaneously convert to sinus rhythm and remained in sinus rhythm throughout the rest of his hospital stay. Because of his history of diabetes glucose levels were monitored and he was placed on low-dose sliding scale Humalog. He had no symptoms of chest pain or pressure and was feeling well on the morning of discharge. He will be discharged home, he already has scheduled follow-up with cardiology for EP study first part of February and is also scheduled for an angiogram. Follow-up appointment will be scheduled with his primary care provider within 1 week. Activity will be as tolerated and he will remain on a diabetic diet. - Patient Instructions Diet: Diabetic Diet Activity: As Tolerated Other/Special Instructions: Please schedule follow-up appointment with primary care provider within 1 week. - Discharge Plan *PRESCRIPTION DRUG MONITORING PROGRAM REVIEWED*: Not Applicable *COPY OF PRESCRIPTION DRUG MONITORING REPORT IN PATIENT JORDIN: Not Applicable Home Medications: Home Meds Aspirin [Adult Low Dose Aspirin EC] 81 mg PO DAILY 01/07/21 [History] Diltiazem HCl [Diltiazem 24Hr ER] 120 mg PO DAILY 01/07/21 [History] - Discharge Summary/Plan Comment DC Time >30 min.: No - Patient Data Vitals - Most Recent: Last Vital Signs Temp 98.0 F 01/08/21 04:00 Pulse Resp 14 01/08/21 06:00 BP 119/65 01/08/21 04:00 Pulse Ox 91 L 01/08/21 06:00 Weight - Most Recent: 295 lb Med Orders - Current: Current Medications Acetaminophen (Acetaminophen 325 Mg Tab) 650 mg PO Q4H PRN PRN Reason: Pain (Mild 1-3)/fever Aspirin (Aspirin 81 Mg Tab.Ec) 81 mg PO DAILY FIDEL Dextrose (Glucose Gel 15 Gm In 37.5 Gm Tube) 15 gm PO ONETIME PRN PRN Reason: Hypoglycemia Dextrose/Water (50% Dextrose In Water 50 Ml Syringe) 50 ml IV ONETIME PRN PRN Reason: Hypoglycemia Diltiazem HCl (Diltiazem 120 Mg Cap.Cd) 120 mg PO DAILY FIDEL Enoxaparin Sodium (Enoxaparin 40 Mg/0.4 Ml Syringe) 40 mg SUBCUT BEDTIME FIDEL Diltiazem HCl 100 mg/ Sodium (Chloride) 100 mls @ 5 mls/hr IV TITRATE FIDEL; Protocol Last Titration: 01/08/21 02:45 Dose: 0 mg/hr, 0 mls/hr Documented by: Insulin Human Lispro (Insulin Lispro 100 Unit/Ml 3 Ml Kwikpen) 0 unit SUBCUT QIDACANDBED FIDEL; Protocol Ondansetron HCl (Ondansetron 4 Mg/2 Ml Sdv) 4 mg IV Q4H PRN PRN Reason: Nausea/Vomiting Polyethylene Glycol (Polyethylene Glycol 3350 Powder 17 Gm Packet) 17 gm PO DAILY PRN PRN Reason: Constipation Sodium Chloride (Sodium Chloride 0.9% 10 Ml Syringe) 10 ml FLUSH ASDIRECTED PRN PRN Reason: Keep Vein Open Discontinued Medications Enoxaparin Sodium (Enoxaparin 40 Mg/0.4 Ml Syringe) 40 mg SUBCUT DAILY [facility] Last Admin: 01/07/21 23:26 Dose: 40 mg Documented by: - Exam General: Reports: Alert, Oriented, Cooperative, No Acute Distress Lungs: Reports: Clear to Auscultation, Normal Respiratory Effort Cardiovascular: Reports: Regular Rate, Regular Rhythm, No Murmurs GI/Abdominal Exam: Soft, Non-Tender, No Organomegaly, No Distention Extremities: Non-Tender, No Pedal Edema
[2021-01-08] MEDS ORDERED: Aspirin 81 MG Tab.EC PO SCH (09:00)
[2021-01-08 09:11] VITALS: BP 120/65
[2021-01-08] MEDS ORDERED: Diltiazem 120 MG Cap.CD PO SCH (09:30)
[2021-01-08] MEDS ORDERED: Enoxaparin 40 MG/0.4 ML Syringe SUBCUT SCH (21:00)
== END 2021-01-08 09:37 | disposition home or self-care (01) | DRG 310 ==
LOC: JP.ICU 22:37
PROVIDERS: ADMIT Hospitalist; ATTEND Hospitalist
DX: I48.91 Unspecified atrial fibrillation (principal); E11.9 Type 2 diabetes mellitus without complications; H54.7 Unspecified visual loss; Z79.82 Long term (current) use of aspirin; Z79.899 Other long term (current) drug therapy; Z96.652 Presence of left artificial knee joint
CPT/HCPCS: J1650; J1815; J3490